=== PATIENT | female | born 1935 | race Caucasian/White ===

== ENCOUNTER 2017-03-28 10:50 | Emergency (ER) | payer MEDICARE, OTHER ==
[2017-03-28] MEDS ORDERED: ACETAMINOPHEN 325 MG TABLET PO STA (12:40)
[2017-03-28] MEDS ORDERED: NAPROXEN 250 MG TABLET PO STA (12:40)
[2017-03-28] MEDS ORDERED: ACETAMINOPHEN 325 MG TABLET PO ONE (12:45)
[2017-03-28] MEDS ORDERED: NAPROXEN 250 MG TABLET PO ONE (12:45)
--- NOTE | 2017-03-28 12:45 | ED Physician Documentation ---
PD HPI NECK PAIN - Stated complaint Stated Complaint: HEADACHE, BACK PX, LEG PX - Chief complaint Chief Complaint: General - History obtained from History obtained from: Patient, Family (brother) - History of Present Illness Timing - onset: How many days ago (few) Timing - duration: Days Timing - details: Gradual onset, Still present, Waxing and waning Location: Lower, Right, Left Quality: Pain, Aching Associated symptoms: No: Fever, Weakness, Numbness Worsened by: Movement Contributing factors: Out of meds Similar symptoms before: Diagnosis (arthritic changes in neck. Was getting PT for it.) Recently seen: Not recently seen Review of Systems Constitutional: denies: Fever, Chills Nose: denies: Rhinorrhea / runny nose, Congestion Throat: denies: Sore throat Cardiac: denies: Chest pain / pressure, Palpitations Respiratory: denies: Dyspnea, Cough, Wheezing Skin: reports: Laceration (s). denies: Lesions, Abrasion (s) Musculoskeletal: reports: Neck pain (chronic), Back pain (chronic) Neurologic: denies: Near syncope, Syncope, Altered mental status PD PAST MEDICAL HISTORY - Past Medical History Past Medical History: Yes Cardiovascular: Congestive heart failure, Valve disorder Respiratory: Asthma HEENT: Macular degeneration, Chronic hearing loss Musculoskeletal: Osteoarthritis Derm: Other Other Past Medical History: Skin cancer 2006. Cochlear implants. Myelodispastic syndrome. Shingles. Thrombocytopenia - Past Surgical History General: Cholecystectomy, Hiatal hernia repair, Colonoscopy /PLUMBING MECHANIC: Other - Present Medications Home Medications: Ambulatory Orders Medication Instructions Recorded Confirmed Aspirin 1 tab PO DAILY 03/28/17 03/28/17 Atorvastatin [Lipitor] 1 tab PO DAILY 03/28/17 03/28/17 Calcium Carbonate/Vitamin D3 1 tab PO DAILY 03/28/17 03/28/17 [Calcium 600-Vit D3 400 Tablet] Fluticasone/Salmeterol [Advair 1 applic INH BID 03/28/17 03/28/17 250-50 Diskus] Fluticasone/Salmeterol [Advair 1 each IH BID #1 blst.w.dev 03/28/17 250-50 Diskus] Ibuprofen 1 tab PO TID 03/28/17 03/28/17 Levothyroxine Sodium 150 mcg PO DAILY #10 tablet 03/28/17 Levothyroxine Sodium [Synthroid] 150 mcg PO DAILY 03/28/17 03/28/17 Lutein 10 mg PO DAILY 03/28/17 03/28/17 Metoprolol Tartrate 25 mg PO BID 03/28/17 03/28/17 Metoprolol Tartrate 25 mg PO BID #20 tablet 03/28/17 Naproxen 375 mg PO BID #20 tablet 03/28/17 Tramadol HCl 50 mg PO TID #15 tablet 03/28/17 Zolpidem Tartrate [Ambien] 1 tab PO DAILY PM 03/28/17 03/28/17 Zolpidem Tartrate [Ambien] 10 mg PO DAILY PRN #10 tablet 03/28/17 - Allergies Allergies/Adverse Reactions: Allergies Allergy/AdvReac Type Severity Reaction Status Date / Time amoxicillin trihydrate * Allergy Unknown Verified 03/28/17 11:10 [From Augmentin] codeine Allergy Unknown Verified 03/28/17 11:10 erythromycin base Allergy Unknown Verified 03/28/17 11:10 loratadine [From Claritin] Allergy Unknown Verified 03/28/17 11:10 potassium clavulanate * Allergy Unknown Verified 03/28/17 11:10 [From Augmentin] propoxyphene HCl * Allergy Unknown Verified 03/28/17 11:10 [From Darvon] Sulfa (Sulfonamide Allergy Unknown Verified 03/28/17 11:10 Antibiotics) tetracycline Allergy Unknown Verified 03/28/17 11:10 - Social History Does the pt smoke?: No Smoking Status: Never smoker Does the pt drink ETOH?: No Does the pt have substance abuse?: No - Immunizations Immunizations are current?: Yes - POLST Patient has POLST: No PD ED PE NORMAL - Vitals Vital signs reviewed: Yes - General General: Alert and oriented X 3, No acute distress, Well developed/nourished - HEENT HEENT: Pharynx benign - Neck Neck: Supple, no meningeal sign, No adenopathy - Cardiac Cardiac: RRR, No murmur - Respiratory Respiratory: Clear bilaterally - Abdomen Abdomen: Normal bowel sounds, Soft - Back Back: No CVA TTP - Derm Derm: Normal color, Warm and dry - Extremities Extremities: No tenderness to palpate, Normal ROM s pain, No edema, No calf tenderness / cord - Neuro Neuro: Alert and oriented X 3, No motor deficit, Normal speech Results - Vitals Vitals: Vital Signs - 24 hr 03/28/17 03/28/17 11:01 12:59 Temperature 36.7 C Heart Rate 61 80 Respiratory 20 20 Rate Blood Pressure 89/49 L 97/65 O2 Saturation 98 100 Oxygen O2 Source Room air PD MEDICAL DECISION MAKING - ED course Complexity details: considered differential (recently moved to area and getting new PMD, with appt this coming . Is out of meds. Feeling okay other than chronic back and neck pains. I did not see need for workup at this time, but would defer labs to new appt and can then get Wellness check labs at same time. ), d/w patient Departure - Departure Disposition: Home, Self Care Clinical Impression: Neck pain, Medication refill Condition: Stable Record reviewed to determine appropriate education?: Yes Instructions: ED Neck Pain No Trauma Follow-Up: Vijay Renteria MD [Provider Admit Priv/Credential] - Prescriptions: Fluticasone/Salmeterol [Advair 250-50 Diskus] 1 each IH BID #1 blst.w.dev Zolpidem Tartrate [Ambien] 10 mg PO DAILY PRN #10 tablet PRN Reason: Insomnia Levothyroxine Sodium 150 mcg PO DAILY #10 tablet Metoprolol Tartrate 25 mg PO BID #20 tablet Naproxen 375 mg PO BID #20 tablet Tramadol HCl 50 mg PO TID #15 tablet Comments: Continue usual medications except stop the Ibuprofen and change to Naproxen twice daily. Add Tylenol 500 mg 3 times daily for pain. Can add Tramadol if needed for worse pain periodically. Follow up with Dr. Renteria's office as planned. I will defer basic blood testing to him at that time. Discharge Date/Time: 03/28/17 13:08
[2017-03-28 13:00] VITALS: BP 97/65
[2017-04-06] MEDS ORDERED: SODIUM CHLORIDE FLUSH 0.9% 10 ML SYRINGE IVP PRN (21:06)
[2017-04-06] MEDS ORDERED: ONDANSETRON 4 MG/2 ML VIAL IVP PRN (21:06)
[2017-04-06] MEDS ORDERED: ACETAMINOPHEN 325 MG TABLET PO PRN (21:06)
[2017-04-06] MEDS ORDERED: ONDANSETRON ODT 4 MG TABLET TL PRN (21:06)
[2017-04-06] MEDS ORDERED: ZOLPIDEM TARTRATE PO SCH (21:15)
[2017-04-06] MEDS ORDERED: diphenhydrAMINE 25 MG CAPSULE PO ONE (21:17)
[2017-04-06] MEDS ORDERED: SODIUM CHLORIDE 0.9% 1,000 ML IV SCH (22:00)
[2017-04-06] MEDS ORDERED: SODIUM CHLORIDE FLUSH 0.9% 10 ML SYRINGE IVP SCH (22:00)
[2017-04-07] MEDS ORDERED: ZOLPIDEM 5 MG TABLET PO PRN (01:03)
[2017-04-07] MEDS ORDERED: LEVOTHYROXINE 75 MCG TABLET PO SCH ×2 (07:00)
[2017-04-07] MEDS ORDERED: POLYETHYLENE GLYCOL 3350 17 GM PACKET PO SCH (09:00)
[2017-04-07] MEDS ORDERED: LEVOTHYROXINE SODIUM 150 MCG PO SCH (09:00)
[2017-04-07] MEDS ORDERED: METOPROLOL TARTRATE 25 MG TABLET PO SCH (09:00)
[2017-04-08] MEDS ORDERED: KETOROLAC 30 MG/ML VIAL ONE (18:33)
== END 2017-03-28 13:08 | disposition home or self-care (01) ==
LOC: ED 10:50
DX: M54.2 Cervicalgia (principal); M54.9 Dorsalgia, unspecified; G89.29 Other chronic pain; Z76.0 Encounter for issue of repeat prescription; Z79.82 Long term (current) use of aspirin
CPT/HCPCS: 93005; 99283; A9270; 86850; 86900; 86901; 86920

== ENCOUNTER 2017-04-06 18:46 | Inpatient (IN) | payer MEDICARE ==
[2017-04-06] MEDS ORDERED: SODIUM CHLORIDE 0.9% 1,000 ML IV ONE (19:23)
--- NOTE | 2017-04-06 19:26 | ED Physician Documentation ---
History of Present Illness - Stated complaint Stated Complaint: RASH/BRUISING - Chief complaint Chief Complaint: General - History obtained from History obtained from: Patient, Family (brother) - Additonal information Additional information: This is a 81-year-old woman who presents accompanied by her brother by private vehicle for evaluation of a rash. She is somewhat confused so some of the history is from the chart, some from the brother, and some from the patient. For example she says she moved up from [place] 3 weeks ago, but the brother says she actually moved from [place]. She doesn't know the date. She doesn't know what medication she is on. She also doesn't recognize the term of myelodysplastic syndrome which is listed previous diagnosis of the chart. It sounds like this rash is mostly on her arms and has been progressive over several weeks. She is more confused. Brother says she has a mild cough and has been incontinent of loose stool. 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 HEENT: Cochlear implant - Present Medications Home Medications: Ambulatory Orders Medication Instructions Recorded Confirmed Aspirin 1 tab PO DAILY 03/28/17 03/28/17 Atorvastatin [Lipitor] 1 tab PO DAILY 03/28/17 03/28/17 Calcium Carbonate/Vitamin D3 1 tab PO DAILY 03/28/17 03/28/17 [Calcium 600-Vit D3 400 Tablet] Fluticasone/Salmeterol [Advair 1 applic INH BID 03/28/17 03/28/17 250-50 Diskus] Fluticasone/Salmeterol [Advair 1 each IH BID #1 blst.w.dev 03/28/17 250-50 Diskus] Ibuprofen 1 tab PO TID 03/28/17 03/28/17 Levothyroxine Sodium 150 mcg PO DAILY #10 tablet 03/28/17 Levothyroxine Sodium [Synthroid] 150 mcg PO DAILY 03/28/17 03/28/17 Lutein 10 mg PO DAILY 03/28/17 03/28/17 Metoprolol Tartrate 25 mg PO BID 03/28/17 03/28/17 Metoprolol Tartrate 25 mg PO BID #20 tablet 03/28/17 Naproxen 375 mg PO BID #20 tablet 03/28/17 Tramadol HCl 50 mg PO TID #15 tablet 03/28/17 Zolpidem Tartrate [Ambien] 1 tab PO DAILY PM 03/28/17 03/28/17 Zolpidem Tartrate [Ambien] 10 mg PO DAILY PRN #10 tablet 03/28/17 - Allergies Allergies/Adverse Reactions: Allergies Allergy/AdvReac Type Severity Reaction Status Date / Time amoxicillin trihydrate * Allergy Unknown Verified 04/06/17 19:15 [From Augmentin] codeine Allergy Unknown Verified 04/06/17 19:15 erythromycin base Allergy Unknown Verified 04/06/17 19:15 loratadine [From Claritin] Allergy Unknown Verified 04/06/17 19:15 potassium clavulanate * Allergy Unknown Verified 04/06/17 19:15 [From Augmentin] propoxyphene HCl * Allergy Unknown Verified 04/06/17 19:15 [From Darvon] Sulfa (Sulfonamide Allergy Unknown Verified 04/06/17 19:15 Antibiotics) tetracycline Allergy Unknown Verified 04/06/17 19:15 - Social History Does the pt smoke?: No Smoking Status: Never smoker Does the pt drink ETOH?: No Does the pt have substance abuse?: No - Family History Family history: reports: Non contributory - Immunizations Immunizations are current?: Yes - POLST Patient has POLST: No PD ED PE NORMAL - Vitals Vital signs reviewed: Yes (hypotensive) - General General: Other (oriented to person only) - HEENT HEENT: PERRL, EOMI - Neck Neck: Supple, no meningeal sign, No bony TTP - Cardiac Cardiac: RRR, No murmur - Respiratory Respiratory: No respiratory distress, Clear bilaterally - Abdomen Abdomen: Soft, Non tender - Female Female : Other (incontient of liquid but guaiac negative stool) - Back Back: No CVA TTP, No spinal TTP - Derm Derm: Other (She has bilateral pitting pedal edema with some weeping, there are petechiae on the top of the feet and excoriated rash with tissue loss on the tops of her arms, there is amado under her breasts.) - Neuro Neuro: No motor deficit, No sensory deficit - Psych Psych: Normal mood, Normal affect Results - Vitals Vitals: Vital Signs - 24 hr 04/06/17 04/06/17 04/06/17 18:55 19:57 20:50 Temperature 36.9 C Heart Rate 73 64 67 Respiratory 22 14 15 Rate Blood Pressure 79/32 L 97/44 L 117/42 L O2 Saturation 100 100 100 04/06/17 21:36 Temperature Heart Rate 66 Respiratory 14 Rate Blood Pressure 104/44 L O2 Saturation 100 Oxygen O2 Source Room air - EKG (time done) 1941 Rate: Rate (enter#) (69) Rhythm: NSR [place]: Normal Intervals: Normal OR QRS: LVH Ischemia: Normal ST segments Computer interpretation: Agree with computer - Labs Labs: Laboratory Tests 04/06/17 04/06/17 04/06/17 19:15 19:15 19:15 WBC 6.5 RBC 2.21 L Hgb 7.2 L Hct 21.5 L MCV 97.5 MCH 32.7 H MCHC 33.6 RDW 19.1 H Plt Count 297 MPV 8.7 Neut # 2.7 Lymph # 1.2 L [place] # 0.6 Eos # 1.9 H Baso # 0.1 Absolute Nucleated RBC 0.01 Nucleated RBCs 0.1 Manual Slide Review Indicated WBC Morphology 2+EO's Platelet Estimate NORMAL (130-450,000) Platelet Morphology NORMAL APPEARANCE RBC Morph Micro Appear 1+ R[place] PT 11.8 INR 1.0 Sodium 135 Potassium 4.7 Chloride 107 Carbon Dioxide 17 L Anion Gap 11.0 BUN 86 H* Creatinine 3.5 H Estimated GFR (MDRD) 13 L Glucose 116 H Lactic Acid Calcium 7.4 L Magnesium 2.5 Total Bilirubin 1.0 AST 52 H ALT 49 Alkaline Phosphatase 63 Total Creatine Kinase 179 CK-MB (CK-2) Troponin I B-Natriuretic Peptide Total Protein 7.0 Albumin 3.1 L Globulin 3.9 Albumin/Globulin Ratio 0.8 L Lipase 46 TSH Urine Color Urine Clarity Urine pH Ur Specific [place] Urine Protein Urine Glucose (UA) Urine Ketones Urine Occult Blood Urine Nitrite Urine Bilirubin Urine Urobilinogen Ur Leukocyte Esterase Urine RBC Urine WBC Ur Squamous Epith Cells Amorphous Sediment Urine Bacteria Urine Casts Ur Microscopic Review Urine Culture Comments 04/06/17 04/06/17 04/06/17 19:15 19:15 19:15 WBC RBC Hgb Hct MCV MCH MCHC RDW Plt Count MPV Neut # Lymph # [place] # Eos # Baso # Absolute Nucleated RBC Nucleated RBCs Manual Slide Review WBC Morphology Platelet Estimate Platelet Morphology RBC Morph Micro Appear PT INR Sodium Potassium Chloride Carbon Dioxide Anion Gap BUN Creatinine Estimated GFR (MDRD) Glucose Lactic Acid 1.8 Calcium Magnesium Total Bilirubin AST ALT Alkaline Phosphatase Total Creatine Kinase CK-MB (CK-2) 18.9 H Troponin I < 0.04 B-Natriuretic Peptide 1132 H Total Protein Albumin Globulin Albumin/Globulin Ratio Lipase TSH Urine Color Urine Clarity Urine pH Ur Specific [place] Urine Protein Urine Glucose (UA) Urine Ketones Urine Occult Blood Urine Nitrite Urine Bilirubin Urine Urobilinogen Ur Leukocyte Esterase Urine RBC Urine WBC Ur Squamous Epith Cells Amorphous Sediment Urine Bacteria Urine Casts Ur Microscopic Review Urine Culture Comments 04/06/17 04/06/17 19:15 19:30 WBC RBC Hgb Hct MCV MCH MCHC RDW Plt Count MPV Neut # Lymph # [place] # Eos # Baso # Absolute Nucleated RBC Nucleated RBCs Manual Slide Review WBC Morphology Platelet Estimate Platelet Morphology RBC Morph Micro Appear PT INR Sodium Potassium Chloride Carbon Dioxide Anion Gap BUN Creatinine Estimated GFR (MDRD) Glucose Lactic Acid Calcium Magnesium Total Bilirubin AST ALT Alkaline Phosphatase Total Creatine Kinase CK-MB (CK-2) Troponin I B-Natriuretic Peptide Total Protein Albumin Globulin Albumin/Globulin Ratio Lipase TSH 1.59 Urine Color YELLOW Urine Clarity CLEAR Urine pH 5.5 Ur Specific [place] 1.015 Urine Protein 30 H Urine Glucose (UA) NEGATIVE Urine Ketones NEGATIVE Urine Occult Blood NEGATIVE Urine Nitrite NEGATIVE Urine Bilirubin NEGATIVE Urine Urobilinogen 0.2 (NORMAL) Ur Leukocyte Esterase NEGATIVE Urine RBC 0-5 Urine WBC 0-3 Ur Squamous Epith Cells RARE Squamous Amorphous Sediment Rare Urine Bacteria None Seen Urine Casts 0-2 Cellular Casts Ur Microscopic Review INDICATED Urine Culture Comments NOT INDICATED - Rads (name of study) 1v chest Radiology: EMP read contemporaneously (mild pulmonary edema) PD MEDICAL DECISION MAKING - ED course ED course: She presents with worsening altered mental status and is found to be uremic with renal failure and anemia of unclear duration. Stool is liquid,. but not enough in ED to eval for c .diff. Spoke with Dr Hurt for admit at 1930. Prognosis is guarded given dehydration/renal failure yet evidence of CHF despite hypovolemia. Departure - Departure Disposition: 66 [facility] DC/Xfer Clinical Impression: Uremia, Dehydration, Renal failure Anemia Qualifiers: Anemia type: unspecified type Qualified Code(s): D64.9 - Anemia, unspecified Condition: Serious Discharge Date/Time: 04/06/17 22:37
[2017-04-06 19:30] LABS: BASOPHILS # (AUTO) 0.1 10^3/uL (0.0-0.1); EOSINOPHILS # (AUTO) 1.9 10^3/uL (0.0-0.7); EOSINOPHILS % (AUTO) 29.6 %; HCT - HEMATOCRIT 21.5 % (37.0-47.0); HGB - HEMOGLOBIN 7.2 g/dL (12.0-16.0); LYMPHOCYTES # (AUTO) 1.2 10^3/uL (1.5-3.5); LYMPHOCYTES % (AUTO) 18.4 %; MEAN CORPUSCULAR HEMOGLOBIN 32.7 pg (27.0-31.0); MEAN CORPUSCULAR HGB CONC 33.6 g/dL (32.0-36.0); MEAN CORPUSCULAR VOLUME 97.5 fL (81.0-99.0); MEAN PLATELET VOLUME 8.7 fL (7.9-10.8); MONOCYTES # (AUTO) 0.6 10^3/uL (0.0-1.0); NEUTROPHILS # (AUTO) 2.7 10^3/uL (1.5-6.6); NUCLEATED RED BLOOD CELLS AUTO 0.1 /100WBC; RED BLOOD COUNT 2.21 10^6/uL (4.20-5.40); RED CELL DISTRIBUTION WIDTH 19.1 % (12.0-15.0); UNCORRECTED WHITE BLOOD COUNT 6.5 x10^3/uL; WHITE BLOOD COUNT 6.5 x10^3/uL (4.8-10.8)
[2017-04-06 19:39] LABS: BILIRUBIN,URINE NEGATIVE (NEGATIVE); PH,URINE 5.5 PH (5.0-7.5)
[2017-04-06 19:42] LABS: UA w/ MICROSCOPIC CHARGE YES
[2017-04-06 19:50] LABS: UR CULTURE IF IND NOT INDICATED; WBC,URINE 0-3 /HPF (0-5)
[2017-04-06 19:51] LABS: CREATINE KINASE MB 18.9 ng/mL (0.6-6.3); TROPONIN I < 0.04 ng/mL (<0.49)
[2017-04-06 19:55] LABS: ALBUMIN/GLOBULIN RATIO 0.8 (1.0-2.2); CALCIUM 7.4 mg/dL (8.5-10.3); CREATININE 3.5 mg/dL (0.4-1.0); MAGNESIUM 2.5 mg/dL (1.7-2.8); POTASSIUM 4.7 mmol/L (3.5-5.0)
[2017-04-06 20:04] LABS: PLATELET ESTIMATE, MANUAL NORMAL (130-450,000) (NORMAL); PLATELET MORPHOLOGY NORMAL APPEARANCE (NORMAL)
[2017-04-06 20:06] LABS: WBC MORPHOLOGY (MULTIPLE) 2+EO's (NORMAL)
--- NOTE | 2017-04-06 20:14 | XRAY Preliminary Report ---
Exam: XR Chest 1 View IMPRESSION: Mild pulmonary fluid overload. [facility] SITE ID: [id number]
--- NOTE | 2017-04-06 20:16 | XRAY Report ---
EXAM: CHEST RADIOGRAPHY EXAM DATE: 04/06/2017 07:43 PM. CLINICAL HISTORY: Dyspnea. COMPARISON: None. TECHNIQUE: 1 view. FINDINGS: Lungs/Pleura: Normal lung volumes. Distended, ill-defined pulmonary vessels. No lobar consolidation. No pleural effusion or pneumothorax. Mediastinum: Prominent heart size. Aortic calcifications noted. Other: None. IMPRESSION: Mild pulmonary fluid overload. [facility] Referring Provider Line: [phone] SITE ID: [id number]
[2017-04-06 20:31] LABS: PT - PROTHROMBIN TIME 11.8 secs (9.9-12.6)
[2017-04-06] MEDS ORDERED: MORPHINE 2 MG/ML SYRINGE IVP STA (21:00)
[2017-04-06] MEDS ORDERED: MORPHINE 2 MG/ML SYRINGE ONE (21:09)
[2017-04-06] MEDS ORDERED: HALOPERIDOL 5 MG/ML VIAL IVP ONE (21:26)
[2017-04-06] MEDS ORDERED: HALOPERIDOL 5 MG/ML VIAL ONE (21:28)
[2017-04-06] MEDS ORDERED: SODIUM CHLORIDE FLUSH 0.9% 10 ML SYRINGE IVP SCH (22:00)
[2017-04-06] MEDS ORDERED: ONDANSETRON ODT 4 MG TABLET TL PRN ×2 (22:00→22:44)
[2017-04-06] MEDS ORDERED: ACETAMINOPHEN 325 MG TABLET PO PRN ×2 (22:00→22:44)
[2017-04-06] MEDS ORDERED: MORPHINE 2 MG/ML SYRINGE IVP PRN ×2 (22:00→22:44)
[2017-04-06] MEDS ORDERED: ONDANSETRON 4 MG/2 ML VIAL IVP PRN ×2 (22:00→22:44)
[2017-04-06] MEDS ORDERED: SODIUM CHLORIDE 0.9% 1,000 ML IV SCH (22:00)
[2017-04-06] MEDS ORDERED: SODIUM CHLORIDE FLUSH 0.9% 10 ML SYRINGE IVP PRN ×2 (22:00→22:44)
[2017-04-06] MEDS ORDERED: ZOLPIDEM TARTRATE 10 MG PO PRN ×2 (22:04→22:44)
[2017-04-06] MEDS: SODIUM CHLORIDE 0.9% 1,000 ML IV SCH (23:04)
[2017-04-06] MEDS ORDERED: ZOLPIDEM 5 MG TABLET PO PRN (23:06)
--- NOTE | 2017-04-07 01:59 | Ultrasound Preliminary Report ---
Exam: US Retroperitoneal IMPRESSION: 1. Bilateral echogenic renal cortex. Findings are nonspecific but are associated with chronic renal i nsufficiency. 2. Mild right pelviectasis. No hydronephrosis. No renal stones or mass. [facility] SITE ID: [id number]
[2017-04-07] MEDS ORDERED: FUROSEMIDE 20 MG/2 ML VIAL IVP SCH (03:00)
[2017-04-07] MEDS ORDERED: traMADol 50 MG TABLET PO SCH ×2 (06:00)
--- NOTE | 2017-04-07 06:37 | HISTORY & PHYSICAL EXAMINATION ---
DATE OF ADMISSION: 04/06/2017 PRIMARY CARE PROVIDER: Vijay Renteria MD. ADMITTING PROVIDER: Lilia King MD. CHIEF COMPLAINT: Itching so bad that she is scratching herself raw. HISTORY OF PRESENT ILLNESS: The patient is a limited history from a medical perspective. The history is obtained from the patient, her bvubsv-re-tle, and Dr. Denzel Cotter, who is her primary care provider in [place]. The only person who was able to provide me a relatively lucid history with some information that useful was the duytjg-yw-lsn. Dr. Cotter does not remember the patient at all. He said he would have to go back to his office tomorrow. The oeuhox-pz-fna is unable to remember previous history, and the patient, herself, is angry to be here and at times uncooperative. In January, she started falling. At one point in time she fell and she could not get up. In association with the falls was shortness of breath, poor appetite. EMS was called, and she was taken to a hospital for several days. Dr. Cotter says he does not know which hospital she was taken to, but he can bet it was either [facility] or [facility]. The narwec-px-rlm thinks that it was [facility] and [facility]. In any case, she was in the hospital for a few days, and then she was taken to a prison facility for rehabilitation for about 3 weeks. Her life has overall taken a down turn. Her health is poor, she does not have the support of her children, and her "grandchildren have robbed me blind." Her brother lives here on [facility], and, in concern and out of love for his sister, felt that he needed to go take care of her. So he picked her up from the prison facility and flew her here to [facility], and she landed 03/18/2017. Xsazqd-ua-pbi says that she knew it was a mistake within a few days. Although the patient is independent, in that she is able to get out of bed and walk to her bathroom, walk to the kitchen, take her own bath, she is having bouts diarrhea that are uncontrollable. This has resulted in multiple underwear changes and clothing changes, and multiple loads of laundry. The patient is always in constant pain, and the pain seems to be diffuse. Neck hurts. Shoulders hurt. Back hurts. Everything hurts. She will sometimes get up in the middle the night and goes youth minister the shower for 45 minutes under as hot of water as she can stand to help with the pain. Although she has tramadol for pain, she insists on taking ibuprofen, and her pgmiry-pm-tkk says that she takes ibuprofen like candy. She is not eating very well and has a poor appetite , but she likes her yogurt smoothies, oatmeal, eggs and toast. Her bottom teeth are gone, so she is not able to eat harder, or more solid food. Qygyml-od-caj describes her as mentally intact. She says, "You could hand her a column of numbers, and she can add them up in a few seconds." But she is just weak, stubborn, and angry to be here. A few days ago she started scratching her arms because they had a "rash." When the mvrisr-cq-ixe would look at the skin, she was not seeing a rash so much as dry skin. In any case, scratching ensued, and the patient is now scratching herself raw. She has not fallen, she has not had any antecedent fever or chills. No blood in the stool. No emesis. The zzvevl-tn-mqa denies that the patient is confused. The patient has been able to be established with Dr. Vijay Renteria and was examined by Dr. Renteria, and he told her that she cannot live by herself. They have investigated going to an assisted living facility, but it is $3500 a month, and all the [facility] housing apartments have up to a 3 to 5-year wait list. The sister finally could not take it anymore. The patient was scratching herself so badly that blood was oozing down her arms and on her clothes. The patient, herself, denies chest pain, palpitations, shortness of breath. She acknowledges edema of her legs. She is not happy to be here and demands to go home. She was evaluated by Dr. Combs. The patient is in renal failure with a creatinine of over 3. Her BNP is elevated. She is edematous, has amado underneath her breasts, and with hemoglobin of 7.2. As such, the patient is now admitted for inpatient status to have her medical problems taken care of, and for us to sort out all of these problems. PAST MEDICAL HISTORY 1. She denies heart disease, congestive heart failure, valvular heart disease. She denies kidney disease. 2. She is an ex-cigarette smoker and has COPD and takes an inhaler. She says the inhaler was prescribed recently. In looking at the EMR, she was seen by Dr. Lake Ortiz 03/28/2017 and that is when she got it. 3. Cholecystectomy in the past. 4. G2, P2. 5. Broken foot. She denies hypertension, diabetes, and does admit to having high cholesterol. ALLERGIES MULTIPLE, AND INCLUDE: 1. AMOXICILLIN. 2. CODEINE. 3. ERYTHROMYCIN. 4. LORATADINE. 5. POTASSIUM CLAVULANATE. 6. PROPOXYPHENE. 7. SULFA. 8. TETRACYCLINE. MEDICATIONS The bneirs-fs-wsn says that this is a current medication, but she will verify with Dr. Renteria in the morning. She is on: 1. Advair Diskus inhaler 1 puff b.i.d. 2. Ambien 10 mg at night p.r.n. 3. Aspirin 81 mg daily. 4. Calcium with vitamin D daily. 5. Ibuprofen 1 tablet 3 times a day. 6. Lipitor 10 mg tablet daily. 7. Lutein 10 mg tablet daily. 8. Metoprolol 25 mg p.o. b.i.d. 9. Synthroid 150 mcg daily. The ldbfxf-gu-nox says that she gives the patient her pills daily, so she knows she is compliant. SOCIAL HISTORY: She smoked. Stopped smoking about 25 years ago and smoked up to 2 packs per day. She denies alcohol abuse. She has been twice and twice, and both her ex-husbands are . 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 I asked her how much she got paid for that, and she laughed and said "nothing." She denies any history of recreational substance abuse in the form of cocaine, heroin, LSD, methamphetamines. One of her daughters accidentally overdosed on opiates and in her 40s. Her son was intermittently in contact. He lives in [place], and he did call the patient's dgavqg-eg-rdr today. It looks like he would want his mother flown back to [place], and he will take care of her in her apartment. FAMILY HISTORY: Both parents of old age. Of 3 brothers, one is . She does not know what he of. Her one brother who lives here is 81. Her 2 children, one is , were healthy with regard to heart, lung, kidney disease. REVIEW OF SYSTEMS: Very difficult to obtain in this stubborn, uncooperative elderly woman who is very unhappy to be here and is demanding to go home. PHYSICAL EXAMINATION HEENT: She tells me that she is a little deaf, but does not have any problem with her vision. She does endorse that her teeth are really bad, and it is easier for her to eat soft food. PULMONARY: She has a chronic daily cough with occasional phlegm production. No hemoptysis. No change in that status. CARDIAC: She firmly and adamantly denies heart problems. She says she has never had a heart attack, never had bypass surgery, and that her legs are "always swollen that way." GASTROINTESTINAL: Food just tastes bad. She does not have an appetite. She does not think she has lost any weight. She has had the diarrhea since she was in [place]. She denies blood in the stool, dark tarry stools. She denies abdominal pain but has a lot of belching and gas. GENITOURINARY: Urinary incontinence with urgency. She denies dysuria. No hematuria, no flank pain. JOINTS: "Everything hurts." Always has. She thinks it is from arthritis. She does not think her joints get hot or swollen. SKIN: No rashes, but she bruises easily, and her skin seems to tear easily. Her feet and legs are swollen again. She feels like she has a rash on her arms, and that is why she is scratching. CENTRAL NERVOUS SYSTEM: She appears to be forgetful, in that she will tell me that she is from [place], not [place]; but then her sister contradicts that and says that she is completely lucid and that she is just angry and does not want to talk to me. She was able to give me the name of Dr. Beckham, but she could not remember which hospital she was in. She was able to give me her address in [place]. She knows that she is on [facility], she does not know the name of this hospital or the date. She has occasionally slurred speech. She exhibits some deafness, but no facial asymmetry, and lips have dried, cracked brown matter, tongue is very dry and pale. NECK: Supple with no JVD. She does have bilateral carotid bruits or radiated carotid murmur. LUNGS: Lungs have diffuse upper airway tubular breath sounds, and a spine that is slightly kyphotic. No crackles, rhonchi, or wheezing, but she does have prolonged end-expiratory phase of respiration. CARDIOVASCULAR: PMI is normally placed with a systolic ejection murmur. Regular rate and rhythm. ABDOMEN: Soft, nontender, doughy abdominal wall, but no masses palpable. Normal bowel sounds and nontender. She has amado underneath her breasts and amado underneath her abdominal fold. The skin of perineum red and skin of coccyx and between fold of buttocks with rash. EXTREMITIES: Legs are swollen, pale, multiple petechiae that are red and nonblanching of the anterior jara tops of her feet. Blister that is 6 mm on the top of her right foot. Edema is pitting. No clubbing, no cyanosis. In examining the ankles, knees, wrists, elbows, and shoulders, there is no heat , no effusions. She has diminished range of motion of the shoulder joint and cannot seem to lift her arms above her head, not so much because of weakness but because of shoulder stiffness. There are no contractures. NEUROLOGIC: It is difficult to assess her orientation. In 1 minute she is cooperative and able to give me a sequential lucid history, and the next she is telling me she is in [place] and she wants me out of her room. She can follow 1- step commands. She has no focal deficits; has some diffuse generalized weakness and needs a standby and 1 minimum assist to sit up in bed. She is not dizzy or ataxic. STUDIES Sodium is 135, potassium 4.7, BUN 86, creatinine 3.5, GFR 13, glucose 116, calcium 7.4, AST 52, ALT 49, total bilirubin 1, troponin less than 0.04, BNP is 1132, TSH is 1.59, lactic acid 1.8. White cell count 6.5, hemoglobin 7.2, hematocrit 21.5, MCV 97, platelets 297. INR is 1. Urinalysis shows proteinuria, 0-5 red cells, 0-3 white cells, rare squamous epithelial cells, no bacteria seen, no culture will be done. Chest x-ray shows mild pulmonary fluid overload. EKG with sinus rhythm, PACs, and a short [place] interval. ASSESSMENT/PLAN 1. Severe pruritus. Most likely cause is the uremia. I explained to her that she does not have a rash, so much as she is scratching itchy skin, and that, in turn, is causing her to have excoriations and bleeding. Hopefully we can get rid of some of the urea, she will not itch as much. I am afraid to give her Benadryl or Atarax on a p.r.n. basis because of sedative qualities. 2. Acute renal failure. Unknown if this is acute on top of chronic, or acute in and of itself. I have no old labs for her. If she is dehydrated, I am presuming it is from diarrhea she describes on a daily basis. Start IV fluids in the form of 0.9 normal saline, check BMP daily. Check renal ultrasound. Get old records. 3. Leg edema. It is pitting. It appears to be associated with fluid retention; but lungs are relatively clear, she is not hypoxic, she has no JVD. However BNP is elevated. She denies history of heart disease. She denies being in congestive heart failure. Could she have pulmonary hypertension with right- sided heart failure because of COPD? I do not feel a right ventricular lift. Check echo. Hold off on Lasix tonight. I want to give her 0.9 normal saline and then blood as noted in problem #4. Then we will diurese her. We will also get [facility] I have asked our health utilization principal accounts clerk to get old records from those hospitals to shed some light. Dr. Cotter, unfortunately, was unable to help. TSH is normal. 4. Anemia. Normocytic. Unknown if acute or chronic. Check iron studies, B12 studies. Again compare to previous medical records. Because she is short of breath, transfuse 2 units. Stool is occult blood. 5. Diarrhea with rectal incontinence. Check C difficile. Add Questran powder to slow it down daily. 6. Possible cognitive deficit. Unclear if this is stubbornness, or if she is truly having memory loss. Again, we will get old records to see that will shed some light. B12 level already ordered. TSH is normal. Check RPR. 7. Amado intertrigo. Nystatin cream and powder. 8. DO NOT INTUBATE, DO NOT RESUSCITATE status per patient. In speaking to the jhwiqg-yb-dbm, she says that is what she has always wanted, and this is not a change, and jbvxri-pb-ftu says that we should honor those wishes. 9. Deep venous thrombosis prophylaxis with SCDs or YOUNG martines. JOB #: [id number] EXT JOB #:[id number] ADDENDUM: I was able to spent 30 minutes reviewing her chart from [facility] in [place]. The health community relations specialist also got records from [facility] as well as [facility] in [place]. They only had the emergency room labs but no admissions. She reportedly had a normal creatinine in April 2015 where her level was 0.[address] Cotter's office. She was then seen at [facility] emergency Department twice in November 2016. On December 11 of hemoglobin was 6.3 and creatinine 2.4. When she kneels down to pray at night before bedtime she is unable to get up off the floor. She declined admission. However she was transfused 2 units in the emergency room and left. She was again seen in the emergency room December 21 for weakness and shortness of breath. This entire time she has been weak, tired, short of breath. She was sent to the ER from her PCP office on the . Hemoglobin was 8 and she was not admitted. She was then seen in the ER 02/16/17 for shortness of breath Been unable to get off the floor from kneeling. She had been short of breath for a week and possibly 3 weeks. She was saturating 90% on room air. She was wheezing and had difficulty breathing. And she was treated as an acute COPD exacerbation. Her systolic blood pressure was in the 80s. Chest x-ray negative for pneumonia. Creatinine was 2.8 and hemoglobin was 6.6. Blood cultures were positive for staph in one out of four and MRSA in one out of four. Echocardiogram showed thickened mitral valve. Nodular calcifications and a fixed posterior leaflet. Sclerosis without stenosis. Minimal regurgitation all the valves. No evidence of vegetation. An ejection fraction of 55-60%. Infectious disease and cardiology and nephrology were consulted. Infectious disease opted to treat her with vancomycin and she was sent to a prison facility to receive 2 weeks of IV vancomycin for these positive blood cultures and equivocal echo. No transesophageal echo was done because cardiology felt that criteria were minimal for endocarditis. Nephrology felt that she had arteriosclerosis with chronic renal failure and that she had anemia of chronic disease. Urinalysis and renal ultrasound were done during that stay and she had a high postvoid residual but no renal disease was seen and no obstruction was seen. She was transfused 2 units of blood. She had a 9 beat run of V. tach as well as a 6 eat run of V. tach. Discharge was 02/19/17 and she went to a SNF. From the SNF she was picked up by her brother and flown here 03/18/17. TARIK
[2017-04-07] MEDS: SODIUM CHLORIDE FLUSH 0.9% 10 ML SYRINGE IVP SCH ×3 (06:47→21:54)
[2017-04-07] MEDS: PANTOPRAZOLE 40 MG TABLET PO SCH (06:48)
[2017-04-07] MEDS: LEVOTHYROXINE 75 MCG TABLET PO SCH (06:48)
[2017-04-07] MEDS ORDERED: PANTOPRAZOLE 40 MG TABLET PO SCH (07:00)
[2017-04-07] MEDS: SODIUM CHLORIDE 0.9% 1,000 ML IV SCH (07:33)
[2017-04-07] MEDS ORDERED: POLYETHYLENE GLYCOL 3350 17 GM PACKET PO SCH (09:00)
[2017-04-07] MEDS ORDERED: METOPROLOL TARTRATE 25 MG TABLET PO SCH ×3 (09:00→17:23)
[2017-04-07] MEDS ORDERED: LEVOTHYROXINE SODIUM 150 MCG PO SCH ×2 (09:00)
[2017-04-07 10:28] LABS: IMMATURE RETIC FRACTION 0.38; RED BLOOD COUNT 2.75 10^6/uL (4.20-5.40)
[2017-04-07 10:40] LABS: IRON 107 ug/dL (28-170); TOTAL IRON BINDING CAPACITY 197 ug/dL (250-450); TRANSFERRIN 141 mg/dL (192-382)
[2017-04-07] MEDS: POLYETHYLENE GLYCOL 3350 17 GM PACKET PO SCH (10:41)
--- NOTE | 2017-04-07 12:18 | Ultrasound Report ---
EXAM: RENAL ULTRASOUND EXAM DATE: 04/06/2017 11:39 PM. CLINICAL HISTORY: Acute renal failure. COMPARISON: None. TECHNIQUE: Real-time scanning was performed with static images obtained. FINDINGS: Right Kidney: 8.6 x 4 x 4.2 cm. Echogenic renal cortex. Mild pelviectasis. No stones or renal mass. Left Kidney: 10.2 x 4.1 x 5.2 cm. Echogenic renal cortex. 1.2 x 1.5 x 1.2 cm mid left renal hypoechoi c cystic structure, likely benign. No renal mass or stones or hydronephrosis noted. Bladder: Right ureteral jet not seen. Questionable left ureteral jet. The prevoid bladder volume was 128 cc. The postvoid bladder volume was not obtained. Comment: Study limited due to body habitus. IMPRESSION: 1. Bilateral echogenic renal cortex. Findings are nonspecific but are associated with chronic renal i nsufficiency. 2. Mild right pelviectasis. No hydronephrosis. No renal stones or mass. [facility] Referring Provider Line: [phone] SITE ID: [id number]
--- NOTE | 2017-04-07 12:33 | PROVIDER PROGRESS NOTE ---
Subjective - Prog Note Date Prog Note Date: 04/07/17 Prog Note Time: 12:30 (seen ~ 10am initially, several times late afternoon, early evening) - Subjective Subjective: I havent eaten since yesterday denies trouble chewing or swallowing, "I cant hear you" denies shortness of breath I hurt all over Its itchy RN reported later in afternoon, patient visitor felt patient confused While trying to arouse for exam she said "go away" family was in when I was in ED, tried to call brothers phone/ voicemail indicated mail box full, could not leave message Current Medications - Current Medications Current Medications: Active Medications Generic Name Dose Route Start Last Admin Trade Name Freq PRN Reason Stop Dose Admin Acetaminophen 650 mg 04/06/17 22:44 Tylenol PO Q4HR PRN Pain 1 to 4 Sodium Chloride 1,000 mls @ 100 mls/hr 04/06/17 23:00 04/07/17 07:33 Normal Saline 0.9% IV 100 mls/hr .Q10H YAKOV Administration Levothyroxine Sodium 150 mcg 04/07/17 07:00 04/07/17 06:48 Synthroid PO Not Given QDAC [facility] Metoprolol Tartrate 25 mg 04/07/17 09:00 04/07/17 11:39 Lopressor PO Not Given BID YAKOV Mineral Oil 1 applic 04/06/17 23:01 Cavilon TOP PRN PRN Skin Care Morphine Sulfate 2 mg 04/06/17 22:44 Morphine IVP Q2HR PRN Pain 8 to 10 Multi-Ingredient Ointment 1 applic 04/06/17 23:01 Zinc Oxide TOP PRN PRN Skin Care Ondansetron HCl 4 mg 04/06/17 22:44 Zofran Odt TL Q6HR PRN Nausea / Vomiting Ondansetron HCl 4 mg 04/06/17 22:44 Zofran Inj IVP Q6HR PRN Nausea / Vomiting Pantoprazole Sodium 40 mg 04/07/17 07:00 04/07/17 06:48 Protonix PO Not Given QDAC [facility] Polyethylene Glycol 17 gm 04/07/17 09:00 04/07/17 10:41 Miralax PO Not Given DAILY YAKOV Sodium Chloride 10 ml 04/06/17 23:00 04/07/17 06:47 Normal Saline Flush 0.9% IVP Not Given Q8HR YAKOV Sodium Chloride 10 ml 04/06/17 22:44 Normal Saline Flush 0.9% IVP PRN PRN NEEDED PER PROVIDER ORDERS Tramadol HCl 50 mg 04/07/17 06:00 Ultram PO TID YAKOV Zolpidem Tartrate 10 mg 04/06/17 23:06 Ambien PO QPM PRN Insomnia Fluticasone [Flonase] 1 spray LOTTIE BID 04/07/17 Ipratropium/Albuterol [Duoneb] 3 ml INH QID PRN 04/07/17 Levothyroxine [Synthroid] 150 mcg PO DAILY 04/07/17 Metoprolol Tartrate 25 mg PO BID 04/07/17 Omeprazole 20 mg PO DAILY 04/07/17 Zolpidem [Ambien] 10 mg PO QPM 04/07/17 traMADol [Ultram] 50 mg PO TID 04/07/17 Objective - Vital Signs/Intake & Output Reviewed Vital Signs: Yes Vital Signs: Vital Signs x48h Temp Pulse Resp BP Pulse Ox 04/07/17 09:15 36.3 C L 70 18 113/61 96 ~ 4pm afeb, 370 HR 125, 100 irregular 98% RA, SBP 115 Intake & Output: Intake & Output 04/04/17 04/05/17 04/06/17 04/07/17 23:59 23:59 23:59 23:59 Intake Total 1000 910 Output Total 201 Balance 1000 709 - Objective General Appearance: positive: Other (sitting up in bed this am, no acute distress, frustrated that hasnt eaten Late afternoon, difficult to arouse, but then would follow commands, no focal deficit, Read the written statement "are you tired" nodded yes Later in evening seen up in chair) ENT: positive: Other (tongue sl dry, lips dry, EOM intact, pupils =, ~ 2mm,) Respiratory: positive: No respiratory distress (unlabored respirations, with afib rate ~ 100-120 noted late in day Sa02 98%, minimal bibasilar crackles, distant breath sounds (but vesicular sounds ausculable), no cough) Cardiovascular: positive: No murmur, Irregularly irregular Abdomen: positive: Nml bowel sounds, No distention, Other. negative: Tenderness Skin: positive: Other (excoriations bilateral upper arms perineum noted very excoriated w/ shallow ulcerations. denuded, with intertrigio/vs yeast bilat groin folds. perineal excoriations extend to perianal area) Extremities: positive: Other (1+ pretibial edema. (not significant pitting)) Neurologic/Psychiatric: positive: Oriented x3 (this am, aware in hospital, March later seemed very fatigued, but arousable and followed commands, and finally seemed to be irritated with exam /cantankerous mimicking examiner), Disoriented to person, Weakness (was able to b e assisted up to chair for dinner ) - Lab Results Fish Bones: 04/06/17 19:15 04/06/17 19:15 Other Labs: Lab Results x24hrs 04/07/17 04/07/17 04/07/17 Range/Units 10:05 10:05 10:05 RBC (4.20-5.40) 10^6/uL Reticulocyte % (Auto) (0.5-2.3) % Absolute Retic (0.020-0.110) 10^6/uL Iron (28-170) ug/dL TIBC (250-450) ug/dL % Saturation (20-50) % Transferrin (192-382) mg/dL Ferritin 1086.2 H (11.0-306.8) ng/mL Lactate Dehydrogenase 325 H (91-225) IU/L B-Natriuretic Peptide 1796 H (5-100) pg/mL 04/07/17 04/07/17 Range/Units 10:05 10:05 RBC 2.75 L (4.20-5.40) 10^6/uL Reticulocyte % (Auto) 2.08 (0.5-2.3) % Absolute Retic 0.057 (0.020-0.110) 10^6/uL Iron 107 (28-170) ug/dL TIBC 197 L (250-450) ug/dL % Saturation 54 H (20-50) % Transferrin 141 L (192-382) mg/dL Ferritin (11.0-306.8) ng/mL Lactate Dehydrogenase (91-225) IU/L B-Natriuretic Peptide (5-100) pg/mL - Diagnostic Imaging Diagnostic Imaging Results: positive: Prelim report reviewed, Final report reviewed (Echocardiogram: (preliminary)Moderate concentric LVH, overall normal LVSysfxn w/ EF 65-70%. Indeterminate Diastolic function. No WMA mild aortic regurg, no mitral stenossis, mild to moderate mitral annular calcification, moderate cam regurgition, RVSP 52mg Ultrasound here: Bilateral echogenic renal cortex; nonspecific finding but assoc'd w/ chronic renal insufficiency 2 ) mild right pelvictasis, no hydronephosis) Assessment/Plan - Problem List (1) Acute on chronic renal failure Impression: Per Dr Soliman note/revieew of outside records ([facility]) (; Cr 0.7>>> mid 11/2016 Cr 2.4 late 11/2016 cr 2.8> evaluated by edging machine operator "atherosclerotic kidney disease", evaluated w/ U/A, urine electrolytesRenal U/S, normal (but noted PVR ~ 150cc). Reommended [id number] for metabolic acidosis Creatinine now 3.5 Repeat renal U/S as above no new findings/ findings c/w CKD Does take regular NSAID for chronic pain/ some impaired renal autoregulation, otherwise has not had new nephrotoxins , no contrast CT , (? possible AIN from [facility] ? (got 2 weeks IV late January_Mid February Urine spec grav argues agnst prerenal (or is she unable to concentrate urine?) Received 1LNS overnight and 2 units PRBC's (with lasix chaser); will recheck Cr in am; hopeful improvement avoid any nephrotixins (2) Anemia Impression: anemia: outside records call this "Anemia of Chronic dz", Iron studies: Ferritin 1086 TIBC 197 Transferrin 141 iron 107 not consistent w/ DOREEN B12 studies normal no occult blood did get Epo at outside hospital transufsed w/ 2 units due to symptomatic dyspnea, she is not offering much re: if she feels better post transfusion recheck in am Qualifiers: Anemia type: unspecified type Qualified Code(s): D64.9 - Anemia, unspecified (3) Cognitive change Impression: vs cantankerousness; B12 normal range TSH normal, RPR pending will do minimental, or minicog,clock drawing test when time permits, speak w/ family about how she has been w/ self care, exectutive fxn (4) Uremic pruritus Impression: will add eucerin creme (5) Weakness Impression: and deconditioning: due to anemia, prolonged SNF stay PT/ OT (was recently at SNF, but up and around at brothers house) (6) COPD (chronic obstructive pulmonary disease) Impression: emphysematous changes noted outside CXR no evident exacerbation at this time; continued duoneb noted on home meds brother brought rapid rate noted sometime after duoneb; will change to xopenex continue Advair on d/c (7) Atrial fibrillation Impression: not noted on outside records/no afib hx, BP stable did get duoneb ~ 2:45 pm Re: possible causesTSH already checked, normal 1.59 , normal troponin on admit, (will recheck) has known copd, afib not noted in medical history, outside echo w / nl EF, valves notable for MR (similar finding on todays echo) has not gotten today's metoprolol; will give now (reduced to 12.5 mg given systolic ~ 1teens, (but may improved w/ better rate contorl satting 98% on RA w/ HOB up, slight crackles bilat bases, (in and out cath/ prefer not to add indwelling catheter given the radvanced CKD / infection risk BNP elevated 1132 on admit>>1796 (also due to elevated Cr) after volume repleation and PRBC's (followed by lasix ) Normal EF on recent echo, since does have mitral regurg will give additional lasix 20 mg Will d/w family/patient anticoagulation [id number] score 3 4.6 % risk stroke/TIA will montior on tele,adjust beta artemio as warranted ; (8) Hypothyroidism Impression: continue home LT4 150 mcg daily (TSH here 1.59 (9) Diarrhea Impression: reported as chronic problem since last admit in [place], but has not had BM here since admit only senait per RN, if pateitn will allow will do rectal to eval for impaction (? if loose stool leaking around obstruction?) Disposition Per brother, was discharged 02/19 form hospital to a SNF, Brother picked her up from SNF and flew her to [facility], where she has been staying with him and his since they were unable to find senior housing Today Dr. Renteria indicates she was out of SNF days on her medicare Son evidently planning on bringing her back to [place], but per Dr. Renteria , she has no finances; CM/SW aware, ? Medicaid needed? (10) Confusion Impression: More somnulent this pm, (did stick her tongue out at me when I asked if she had pain which may or may not be deliberate), no fever , no hypoxia, ua normal this am, no culprit meds, afib RVR as above, no further diarrhea since admit no focal findings on exam (does eventually follow bilat commands to squeeze, and holds legs open for stewart placement I suspect her tremulousness is more due to the duoneb, (changing to xopenex), but given her advance CKD will check blood cultures (intertrigio/ does have skin compromise Will stop ambien (hasnt gotten here, to avoid confusion tonight May just be tired (11) NSVT (nonsustained ventricular tachycardia) Impression: 7 beat run today, also noted 9bt, 6 bt on outside record was seen by cardiolgy there, echo w/ normal EF K, Mag in normal range. continue metoprolol, continue tele (12) Denuded skin Impression: of perineum; likely has had chronic dribbling (PvR noted on [place] renal/bladder u/s will place stewart for now (only planned in and out cath, but placed indwelling given excoriation start barrier creme, continue nystatin for amado/groin folds may need out patient urodynamic evaluation as above, ordered blood cultures w/ altered mentation earlier in event any skin alla>> infecton in pt w/ advanced CKD
[2017-04-07] MEDS: EMOLLIENT CREAM 57 GM TUBE TOP SCH ×2 (13:51→21:57)
[2017-04-07] MEDS ORDERED: IPRATROPIUM/ALBUTEROL 3 ML NEB INH ONE (14:45)
[2017-04-07] MEDS: NYSTATIN POWDER 15 GM TOP SCH ×2 (18:05→21:56)
[2017-04-07] MEDS: FUROSEMIDE 100 MG/10 ML VIAL IVP SCH ×2 (18:12→18:18)
[2017-04-07] MEDS: LEVALBUTEROL 1.25 MG INH SCH (18:55)
[2017-04-07] MEDS: SODIUM CHLORIDE INHALATION 3 ML NEB INH PRN (18:55)
[2017-04-07] MEDS ORDERED: IPRATROPIUM/ALBUTEROL 3 ML NEB INH SCH (19:00)
[2017-04-07] MEDS: MIN OIL/DIMETHICON/COCONUT OIL 92 GM TUBE TOP PRN (21:58)
[2017-04-07] MEDS: ZINC OXIDE 20% OINT 28.35 GM TUBE TOP PRN (21:59)
[2017-04-07] MEDS ORDERED: HALOPERIDOL 5 MG/ML VIAL IM SCH (23:18)
[2017-04-08 02:13] LABS: BASOPHILS # (AUTO) 0.1 10^3/uL (0.0-0.1); BASOPHILS % (AUTO) 1.8 %; EOSINOPHILS # (AUTO) 0.8 10^3/uL (0.0-0.7); EOSINOPHILS % (AUTO) 18.5 %; HCT - HEMATOCRIT 23.4 % (37.0-47.0); LYMPHOCYTES # (AUTO) 0.8 10^3/uL (1.5-3.5); LYMPHOCYTES % (AUTO) 19.2 %; MEAN CORPUSCULAR HEMOGLOBIN 31.3 pg (27.0-31.0); MEAN CORPUSCULAR HGB CONC 34.1 g/dL (32.0-36.0); MEAN CORPUSCULAR VOLUME 91.6 fL (81.0-99.0); MEAN PLATELET VOLUME 6.8 fL (7.9-10.8); MONOCYTES # (AUTO) 0.4 10^3/uL (0.0-1.0); MONOCYTES % (AUTO) 10.3 %; NEUTROPHILS # (AUTO) 2.1 10^3/uL (1.5-6.6); NEUTROPHILS % (AUTO) 50.2 %; NUCLEATED RED BLOOD CELLS AUTO 0.1 /100WBC; RED BLOOD COUNT 2.55 10^6/uL (4.20-5.40); RED CELL DISTRIBUTION WIDTH 18.2 % (12.0-15.0); UNCORRECTED WHITE BLOOD COUNT 4.1 x10^3/uL; WHITE BLOOD COUNT 4.1 x10^3/uL (4.8-10.8)
[2017-04-08 02:26] LABS: CALCIUM 7.2 mg/dL (8.5-10.3); CREATININE 3.1 mg/dL (0.4-1.0); POTASSIUM 3.9 mmol/L (3.5-5.0)
[2017-04-08] MEDS: LEVOTHYROXINE 75 MCG TABLET PO SCH (06:13)
[2017-04-08] MEDS: PANTOPRAZOLE 40 MG TABLET PO SCH (06:13)
[2017-04-08] MEDS: SODIUM CHLORIDE FLUSH 0.9% 10 ML SYRINGE IVP SCH ×2 (07:03→21:51)
[2017-04-08] MEDS: SODIUM CHLORIDE INHALATION 3 ML NEB INH PRN ×2 (07:25→19:20)
[2017-04-08] MEDS: LEVALBUTEROL 1.25 MG INH SCH ×2 (07:25→19:20)
[2017-04-08] MEDS ORDERED: FUROSEMIDE 20 MG/2 ML VIAL IVP SCH (09:00)
[2017-04-08] MEDS ORDERED: DIMETHICONE CREAM 118 ML TUBE TOP SCH (09:00)
--- NOTE | 2017-04-08 09:59 | PROVIDER PROGRESS NOTE ---
Subjective - Prog Note Date Prog Note Date: 04/08/17 Prog Note Time: 09:50 - Subjective Subjective: per RN, Dr. King, patient got Haldol 2.5 last night as combative, pulling off tele, stewart, and IV did not arouse for me or RT Later RN indicated she did eat her breakfast, demanded "salt" as her one request then pushed the tray away when done Refusing po meds per RN Patient nonverbal when I have seen today.sleeping, difficult to arouse Brother in, patient held his hand but did not open her eyes or speak to him Brother says siblings want to fly her back to [place] Current Medications - Current Medications Current Medications: Active Medications Generic Name Dose Route Start Last Admin Trade Name Freq PRN Reason Stop Dose Admin Acetaminophen 650 mg 04/06/17 22:44 Tylenol PO Q4HR PRN Pain 1 to 4 Levalbuterol HCl 1.25 mg 04/07/17 19:00 04/08/17 07:25 Xopenex INH 1.25 mg RTBID YAKOV Administration Levothyroxine Sodium 150 mcg 04/07/17 07:00 04/08/17 06:13 Synthroid PO 150 mcg QDAC YAKOV Administration Metoprolol Tartrate 12.5 mg 04/07/17 17:23 04/07/17 18:04 Lopressor PO 12.5 mg BID YAKOV Administration Mineral Oil 1 applic 04/06/17 23:01 04/07/17 21:58 Cavilon TOP 1 applic PRN PRN Administration Skin Care Mineral Oil 1 applic 04/08/17 09:00 Cavilon TOP BID YAKOV Morphine Sulfate 2 mg 04/06/17 22:44 Morphine IVP Q2HR PRN Pain 8 to 10 Multi-Ingredient Ointment 1 applic 04/06/17 23:01 04/07/17 21:59 Zinc Oxide TOP 1 applic PRN PRN Administration Skin Care Multi-Ingredient Ointment 1 applic 04/07/17 13:00 04/07/17 21:57 Eucerin TOP 1 applic BID YAKOV Administration Nystatin 1 applic 04/07/17 18:00 04/07/17 21:56 Nystop TOP 1 applic BID YAKOV Administration Ondansetron HCl 4 mg 04/06/17 22:44 Zofran Odt TL Q6HR PRN Nausea / Vomiting Ondansetron HCl 4 mg 04/06/17 22:44 Zofran Inj IVP Q6HR PRN Nausea / Vomiting Pantoprazole Sodium 40 mg 04/07/17 07:00 04/08/17 06:13 Protonix PO 40 mg QDAC YAKOV Administration Polyethylene Glycol 17 gm 04/07/17 09:00 04/07/17 10:41 Miralax PO Not Given DAILY YAKOV Sodium Chloride 10 ml 04/06/17 23:00 04/08/17 07:03 Normal Saline Flush 0.9% IVP 10 ml Q8HR YAKOV Administration Sodium Chloride 10 ml 04/06/17 22:44 Normal Saline Flush 0.9% IVP PRN PRN NEEDED PER PROVIDER ORDERS Sodium Chloride 3 ml 04/07/17 17:28 04/08/17 07:25 Normal Saline INH 3 ml PRN PRN Administration Levalbuterol treatment Fluticasone [Flonase] 1 spray LOTTIE BID 04/07/17 Ipratropium/Albuterol [Duoneb] 3 ml INH QID PRN 04/07/17 Levothyroxine [Synthroid] 150 mcg PO DAILY 04/07/17 Metoprolol Tartrate 25 mg PO BID 04/07/17 Omeprazole 20 mg PO DAILY 04/07/17 Zolpidem [Ambien] 10 mg PO QPM 04/07/17 traMADol [Ultram] 50 mg PO TID 04/07/17 Objective - Vital Signs/Intake & Output Reviewed Vital Signs: Yes Vital Signs: Vital Signs x48h Temp Pulse Pulse Resp BP Pulse Ox 04/08/17 08:24 36.8 C 88 22 111/51 L 98 04/08/17 07:25 78 18 04/08/17 03:43 36.9 C 110 H 20 120/52 L 97 Intake & Output: Intake & Output 04/05/17 04/06/17 04/07/17 04/08/17 23:59 23:59 23:59 23:59 Intake Total 1000 1479 400 Output Total 1166 Balance 1000 313 400 - Objective General Appearance: positive: Other (sleeping when I went in room, did not arouse for me w/ firm palpation, auscultation) Eyes Bilateral: positive: Other (dry crusting around eyes,) Respiratory: positive: No respiratory distress (lying flat breathing comfortably ), Breath sounds nml (auscultated early in day when RN had patient sitting at bedside no wheezing, no rhonchi, no crackles, Sa02 on RA 97-98%) Cardiovascular: positive: Irregularly irregular, Other (rate ~ 100 faint 1/6 systolic murmur) Abdomen: positive: Nml bowel sounds, No distention, Other (stewart out this am). negative: Tenderness Skin: positive: Warm, Dry, Other (excoriated lesions w/ scabbing bilateral forearms, no bleeding perineum not visualized today, but I examined yesterday, excoriated vulva, perineum w/ shallow ulcerations,) Extremities: positive: Pedal edema (1+) Neurologic/Psychiatric: positive: Other (as above , nonverbal with me today. Sat up for breakfast w/ RN assist) - Lab Results Fish Bones: 04/08/17 02:07 04/08/17 02:07 Other Labs: Lab Results x24hrs 04/08/17 04/08/17 04/08/17 Range/Units 02:07 02:07 02:07 WBC 4.1 L (4.8-10.8) x10^3/uL RBC 2.55 L (4.20-5.40) 10^6/uL Hgb 8.0 L (12.0-16.0) g/dL Hct 23.4 L (37.0-47.0) % MCV 91.6 (81.0-99.0) fL MCH 31.3 H (27.0-31.0) pg MCHC 34.1 (32.0-36.0) g/dL RDW 18.2 H (12.0-15.0) % Plt Count 181 (130-450) 10^3/uL MPV 6.8 L (7.9-10.8) fL Reticulocyte % (Auto) (0.5-2.3) % Neut # 2.1 (1.5-6.6) 10^3/uL Lymph # 0.8 L (1.5-3.5) 10^3/uL Yell # 0.4 (0.0-1.0) 10^3/uL Eos # 0.8 H (0.0-0.7) 10^3/uL Baso # 0.1 (0.0-0.1) 10^3/uL Absolute Nucleated RBC 0.00 x10^3/uL Nucleated RBCs 0.1 /100WBC Absolute Retic (0.020-0.110) 10^6/uL Sodium 142 (135-145) mmol/L Potassium 3.9 (3.5-5.0) mmol/L Chloride 115 H (101-111) mmol/L Carbon Dioxide 17 L (21-32) mmol/L Anion Gap 10.0 (6-13) BUN 77 H (6-20) mg/dL Creatinine 3.1 H (0.4-1.0) mg/dL Estimated GFR (MDRD) 14 L (>89) Glucose 88 (70-100) mg/dL Calcium 7.2 L (8.5-10.3) mg/dL Phosphorus 5.0 H (2.5-4.6) mg/dL Iron (28-170) ug/dL TIBC (250-450) ug/dL % Saturation (20-50) % Transferrin (192-382) mg/dL Ferritin (11.0-306.8) ng/mL Lactate Dehydrogenase (91-225) IU/L Troponin I 0.08 (<0.49) ng/mL B-Natriuretic Peptide (5-100) pg/mL Vitamin B12 (180-914) pg/mL 04/08/17 04/07/17 04/07/17 Range/Units 02:07 18:20 10:05 WBC (4.8-10.8) x10^3/uL RBC (4.20-5.40) 10^6/uL Hgb (12.0-16.0) g/dL Hct (37.0-47.0) % MCV (81.0-99.0) fL MCH (27.0-31.0) pg MCHC (32.0-36.0) g/dL RDW (12.0-15.0) % Plt Count (130-450) 10^3/uL MPV (7.9-10.8) fL Reticulocyte % (Auto) (0.5-2.3) % Neut # (1.5-6.6) 10^3/uL Lymph # (1.5-3.5) 10^3/uL Yell # (0.0-1.0) 10^3/uL Eos # (0.0-0.7) 10^3/uL Baso # (0.0-0.1) 10^3/uL Absolute Nucleated RBC x10^3/uL Nucleated RBCs /100WBC Absolute Retic (0.020-0.110) 10^6/uL Sodium (135-145) mmol/L Potassium (3.5-5.0) mmol/L Chloride (101-111) mmol/L Carbon Dioxide (21-32) mmol/L Anion Gap (6-13) BUN (6-20) mg/dL Creatinine (0.4-1.0) mg/dL Estimated GFR (MDRD) (>89) Glucose (70-100) mg/dL Calcium (8.5-10.3) mg/dL Phosphorus (2.5-4.6) mg/dL Iron (28-170) ug/dL TIBC (250-450) ug/dL % Saturation (20-50) % Transferrin (192-382) mg/dL Ferritin (11.0-306.8) ng/mL Lactate Dehydrogenase (91-225) IU/L Troponin I 0.06 (<0.49) ng/mL B-Natriuretic Peptide 1796 H (5-100) pg/mL Vitamin B12 676 (180-914) pg/mL 04/07/17 04/07/17 04/07/17 Range/Units 10:05 10:05 10:05 WBC (4.8-10.8) x10^3/uL RBC (4.20-5.40) 10^6/uL Hgb (12.0-16.0) g/dL Hct (37.0-47.0) % MCV (81.0-99.0) fL MCH (27.0-31.0) pg MCHC (32.0-36.0) g/dL RDW (12.0-15.0) % Plt Count (130-450) 10^3/uL MPV (7.9-10.8) fL Reticulocyte % (Auto) (0.5-2.3) % Neut # (1.5-6.6) 10^3/uL Lymph # (1.5-3.5) 10^3/uL Yell # (0.0-1.0) 10^3/uL Eos # (0.0-0.7) 10^3/uL Baso # (0.0-0.1) 10^3/uL Absolute Nucleated RBC x10^3/uL Nucleated RBCs /100WBC Absolute Retic (0.020-0.110) 10^6/uL Sodium (135-145) mmol/L Potassium (3.5-5.0) mmol/L Chloride (101-111) mmol/L Carbon Dioxide (21-32) mmol/L Anion Gap (6-13) BUN (6-20) mg/dL Creatinine (0.4-1.0) mg/dL Estimated GFR (MDRD) (>89) Glucose (70-100) mg/dL Calcium (8.5-10.3) mg/dL Phosphorus (2.5-4.6) mg/dL Iron 107 (28-170) ug/dL TIBC 197 L (250-450) ug/dL % Saturation 54 H (20-50) % Transferrin 141 L (192-382) mg/dL Ferritin 1086.2 H (11.0-306.8) ng/mL Lactate Dehydrogenase 325 H (91-225) IU/L Troponin I (<0.49) ng/mL B-Natriuretic Peptide (5-100) pg/mL Vitamin B12 (180-914) pg/mL 04/07/17 Range/Units 10:05 WBC (4.8-10.8) x10^3/uL RBC 2.75 L (4.20-5.40) 10^6/uL Hgb (12.0-16.0) g/dL Hct (37.0-47.0) % MCV (81.0-99.0) fL MCH (27.0-31.0) pg MCHC (32.0-36.0) g/dL RDW (12.0-15.0) % Plt Count (130-450) 10^3/uL MPV (7.9-10.8) fL Reticulocyte % (Auto) 2.08 (0.5-2.3) % Neut # (1.5-6.6) 10^3/uL Lymph # (1.5-3.5) 10^3/uL Yell # (0.0-1.0) 10^3/uL Eos # (0.0-0.7) 10^3/uL Baso # (0.0-0.1) 10^3/uL Absolute Nucleated RBC x10^3/uL Nucleated RBCs /100WBC Absolute Retic 0.057 (0.020-0.110) 10^6/uL Sodium (135-145) mmol/L Potassium (3.5-5.0) mmol/L Chloride (101-111) mmol/L Carbon Dioxide (21-32) mmol/L Anion Gap (6-13) BUN (6-20) mg/dL Creatinine (0.4-1.0) mg/dL Estimated GFR (MDRD) (>89) Glucose (70-100) mg/dL Calcium (8.5-10.3) mg/dL Phosphorus (2.5-4.6) mg/dL Iron (28-170) ug/dL TIBC (250-450) ug/dL % Saturation (20-50) % Transferrin (192-382) mg/dL Ferritin (11.0-306.8) ng/mL Lactate Dehydrogenase (91-225) IU/L Troponin I (<0.49) ng/mL B-Natriuretic Peptide (5-100) pg/mL Vitamin B12 (180-914) pg/mL Assessment/Plan - Problem List (1) Acute on chronic renal failure Impression: (1) Acute on chronic renal failure Impression: 04/08 Cr improved to 3.1, after blood volume, and IVF no evident volume overload Patient self d/c'd IV last night, closer to 11/2016 Cr of 2.8. Phos slightly elevated will check CKD guidelines for starting Phos lo, may contact Dr. Lewis in am for other recs added water based immolient for uremic pruruitis 04/[address] Soliman note/revieew of outside records ([facility] ) (; Cr 0.7>>> mid 11/2016 Cr 2.4 late 11/2016 cr 2.8> evaluated by cinder block mason "atherosclerotic kidney disease", evaluated w/ U/A, urine electrolytesRenal U/S, normal (but noted PVR ~ 150cc). Reommended [id number] for metabolic acidosis Creatinine now 3.5 Repeat renal U/S as above no new findings/ findings c/w CKD Does take regular NSAID for chronic pain/ some impaired renal autoregulation, otherwise has not had new nephrotoxins , no contrast CT , (? possible AIN from [facility] ? (got 2 weeks IV late January_Mid February Urine spec grav argues agnst prerenal (or is she unable to concentrate urine?) Received 1LNS overnight and 2 units PRBC's (with lasix chaser); will recheck Cr in am; hopeful improvement avoid any nephrotixins (2) Anemia Impression: 04/08 Hgb 8 anemia: outside records call this "Anemia of Chronic dz", Iron studies: Ferritin 1086 TIBC 197 Transferrin 141 iron 107 not consistent w/ DOREEN B12 studies normal no occult blood did get Epo at outside hospital transufsed w/ 2 units due to symptomatic dyspnea, she is not offering much re: if she feels better post transfusion recheck in am 3) Post void residual' ureteral reflux could conceivabley be contributing to the recent cKD 900 cc today ISC q 8 hrs (5) Weakness and deconditioning Impression: Multifactorial due to anemia, CKD continue oob to chair tid PT eval; families goal is to fly her back to [place] was at SNF in [place] til moved to brothers on 03/18 (6) Cognitive change Impression: vs cantankerousness; B12 normal range TSH normal, not alert today to do minimental, Brother notes although her 2am showers at home were oddly timed, rather than this sounds like was purposeful to address pruritis (6) COPD (chronic obstructive pulmonary disease) Impression: stable, no wheezing, no 02 need on duonebs and advair at home prn xopenex here (rapid afib after duoneb 04/07 (7) Atrial fibrillation Impression: 04/08; rate reasonably controlled ~ 100 self d/c'd tele , continue metoprolol, will defer discussion re:anticoagulant 04/07not noted on outside records/no afib hx, BP stable did get duoneb ~ 2:45 pm Re: possible causesTSH already checked, normal 1.59 , normal troponin on admit, (will recheck) has known copd, afib not noted in medical history, outside echo w / nl EF, valves notable for MR (similar finding on todays echo) has not gotten today's metoprolol; will give now (reduced to 12.5 mg given systolic ~ 1teens, (but may improved w/ better rate contorl satting 98% on RA w/ HOB up, slight crackles bilat bases, (in and out cath/ prefer not to add indwelling catheter given the radvanced CKD / infection risk BNP elevated 1132 on admit>>1796 (also due to elevated Cr) after volume repleation and PRBC's (followed by lasix ) Normal EF on recent echo, since does have mitral regurg will give additional lasix 20 mg Will d/w family/patient anticoagulation [id number] score 3 4.6 % risk stroke/TIA will montior on tele,adjust beta artemio as warranted (8) Hypothyroidism Impression: continue home LT4 150 mcg daily (TSH here 1.59 (9) Denuded skin of perineum Impression: Patient d/c'd stewart. With PVR of 900 will do ISC q 8 hr likely has had chronic dribbling (PvR noted on [place] renal/bladder u/s will place stewart for now (only planned in and out cath, but placed indwelling given excoriation start barrier creme, continue nystatin for amado/groin folds may need out patient urodynamic evaluation as above, ordered blood cultures w/ altered mentation earlier Disposition Per brother, and recordswas discharged 02/19 from hospital to a SNF, Brother picked her up from SNF and flew her to [facility], where she has been staying with him and his since they were unable to find senior housing Dr. Renteria indicated she was out of SNF days on her medicare CM has explored and there are still SNF days available Still need PT assessment, will d/w brother if will consider SNF here (if qualifies) to be stronger for flying back to [place] Will need to address safety for flying first (11) NSVT (nonsustained ventricular tachycardia) Impression: 04/08; patient self d/c'd tele, no further NSVT noted last night 04/07 7 beat run today, also noted 9bt, 6 bt on outside record was seen by cardiolgy there, echo w/ normal EF K, Mag in normal range. continue metoprolol, continue tele (12) Diarrhea Impression: 04/08; none 04/07reported as chronic problem since last admit in [place], but has not had BM here since admit (2) Cognitive change Impression: today sedation more c/w last nights haldol When awake, she continues irritable, cantankerous have not been able to have meaningful conversation w/ her re goals of care (3) Uremic pruritus Impression: added water based emollient (4) Weakness Impression: Multifactorial due to anemia, CKD continue oob to chair tid PT eval; families goal is to fly her back to [place] (5) COPD (chronic obstructive pulmonary disease) Impression: stable, no wheezing, no 02 need on duonebs and advair at home prn xopenex here (rapid afib after duoneb 04/07
[2017-04-08] MEDS: METOPROLOL TARTRATE 25 MG TABLET PO SCH ×2 (12:01→22:03)
[2017-04-08] MEDS: POLYETHYLENE GLYCOL 3350 17 GM PACKET PO SCH (12:02)
[2017-04-08] MEDS: EMOLLIENT CREAM 57 GM TUBE TOP SCH ×2 (12:02→22:22)
[2017-04-08] MEDS: NYSTATIN POWDER 15 GM TOP SCH ×2 (12:02→22:22)
[2017-04-08] MEDS: MIN OIL/DIMETHICON/COCONUT OIL 92 GM TUBE TOP SCH ×2 (12:02→22:21)
[2017-04-08] MEDS ORDERED: CARBOXYMETHYLCELLULOSE OPHTH DROPS EACHEYE PRN (17:00)
[2017-04-09] MEDS: SODIUM CHLORIDE FLUSH 0.9% 10 ML SYRINGE IVP SCH ×3 (01:46→14:16)
[2017-04-09] MEDS: LEVOTHYROXINE 75 MCG TABLET PO SCH (06:18)
[2017-04-09] MEDS: PANTOPRAZOLE 40 MG TABLET PO SCH (06:19)
[2017-04-09 08:05] VITALS: BP 117/64
[2017-04-09] MEDS: METOPROLOL TARTRATE 25 MG TABLET PO SCH (08:48)
[2017-04-09] MEDS: POLYETHYLENE GLYCOL 3350 17 GM PACKET PO SCH (08:48)
[2017-04-09] MEDS: EMOLLIENT CREAM 57 GM TUBE TOP SCH (08:51)
[2017-04-09] MEDS: ZINC OXIDE 20% OINT 28.35 GM TUBE TOP PRN (08:52)
[2017-04-09] MEDS: MIN OIL/DIMETHICON/COCONUT OIL 92 GM TUBE TOP PRN (08:52)
[2017-04-09] MEDS: NYSTATIN POWDER 15 GM TOP SCH (08:53)
[2017-04-09] MEDS: MIN OIL/DIMETHICON/COCONUT OIL 92 GM TUBE TOP SCH (08:54)
--- NOTE | 2017-04-09 11:29 | Discharge Plan ---
Discharge Plan Disposition: Home, Self Care Condition: Stable Prescriptions: Metoprolol Tartrate 37.5 mg PO BID #60 tablet Nystatin [Nystop] 1 applic TOP BID #1 bottle Calcium Acetate [Phoslo] 667 mg PO TIDWM #90 capsule Diet: Low Sodium Activity Restrictions: use walker Shower Restrictions: No Driving Restrictions: Yes Assistance Devices: Walker Additional Instructions or Follow Up instructions: You came to the hospital with skin excoriations from scratching The itching skin is due to kidney failure, your kidneys are not clearing your body's waste products and these accumulate in your skin Use a water based emollient (such as eucerin) Follow up with stummel selector (kidney doctor) when you return to [place] Chronic kidney disease: based on your records from [place], you developed kidney disease sometime after 2014. In Nov 2016, you were in the ED [place] twice with Creatinine (kidney function # ) of 2.8. It was 3.7 here, IMPROVED to 2.7 BUN 65 YOur phosphorus (cleared by kidneys) is a little elevated and calcium low ( common in kidney failure) We started calcium acetate. Your kidney function needs to be followed closely once you return to [place] Eat a low salt diet so you do not retain fluid (the kidneys have to deal with fluid) You are anemic, and have been anemic in [place] as well (hemoglobin (hgb) in [place] was as low as 6.6 You were transfused w/ 2 units of blood here On the day of discharge your Hgb/hct (hematocrit) are 8.0 and 24.1 You have atrial fibrillation. Irregular heart rate (your brother thinks he recalls you having this diagnosis before but it is not in the records we got from [place] There is a risk of stroke with atrial fibrillation. The new blood thinners for atrial fibrillation can not be given with renal function as low as yours. The other option is coumadin (warfarin). Warfarin requires regular blood checks and has a narrow range. We do not feel safe starting this if you are moving back to [place] shortly. Discuss this (risks, benefits) with your primary doctor of blood thinner For now take aspirin 81 mg daily (which offers only limited stroke protection) For rate control we increased your metoprolol to 37.5 mg twice daily from 25 mg twice daily (take 1.5 25 mg tabs twice daily of the metoprolol) REgarding possilbe causes of atrial fibrillation echo ; normal heart squeeze and ejection fraction. Valves notable for moderate mitral regurgitation TSH (thyroid function normal on your home levothyroxine) no evidence of heart attack, troponins normal COPD (which you have) can contribute to risk of COPD Urinary retention: this was noted in [place] as well but improved while you were here EMpty your bladder frequently to avoid risk of infection You do not have a urinary tract infection here Your doctor in [place] should consider referral to urologist Skin excoriation in groin/ perineum from chronic urinary incontinence Use a barrier creme like calmoseptin Physical Therapy evaluated you and found you were strong enough to walk with a walker and did not recommend Be up out of bed as much as possible to not lose strength. No Smoking: If you smoke, Please STOP! Call for help. Follow-up with: Vijay Renteria MD [Primary Care Provider] -
[2017-04-09 11:37] LABS: BASOPHILS # (AUTO) 0.1 10^3/uL (0.0-0.1); BASOPHILS % (AUTO) 1.9 %; EOSINOPHILS % (AUTO) 24.3 %; HCT - HEMATOCRIT 24.1 % (37.0-47.0); LYMPHOCYTES # (AUTO) 0.6 10^3/uL (1.5-3.5); LYMPHOCYTES % (AUTO) 15.6 %; MEAN CORPUSCULAR HGB CONC 33.4 g/dL (32.0-36.0); MEAN CORPUSCULAR VOLUME 92.9 fL (81.0-99.0); MEAN PLATELET VOLUME 6.9 fL (7.9-10.8); MONOCYTES # (AUTO) 0.4 10^3/uL (0.0-1.0); MONOCYTES % (AUTO) 10.4 %; NEUTROPHILS # (AUTO) 1.9 10^3/uL (1.5-6.6); NEUTROPHILS % (AUTO) 47.8 %; NUCLEATED RED BLOOD CELLS AUTO 0.1 /100WBC; RED BLOOD COUNT 2.59 10^6/uL (4.20-5.40); RED CELL DISTRIBUTION WIDTH 19.4 % (12.0-15.0); UNCORRECTED WHITE BLOOD COUNT 4.1 x10^3/uL; WHITE BLOOD COUNT 4.1 x10^3/uL (4.8-10.8)
[2017-04-09 11:58] LABS: CALCIUM 7.1 mg/dL (8.5-10.3); CREATININE 2.7 mg/dL (0.4-1.0); POTASSIUM 3.9 mmol/L (3.5-5.0)
[2017-04-09] MEDS ORDERED: METOPROLOL TARTRATE 25 MG TABLET PO SCH (12:00)
[2017-04-09] MEDS ORDERED: CALCIUM ACETATE 667 MG CAPSULE PO SCH (12:00)
[2017-04-09] MEDS: LEVALBUTEROL 1.25 MG INH SCH (13:44)
[2017-04-09] MEDS: SODIUM CHLORIDE INHALATION 3 ML NEB INH PRN (13:44)
--- NOTE | 2017-04-12 08:21 | DISCHARGE SUMMARY ---
DATE OF ADMISSION: 04/06/2017 DATE OF DISCHARGE: 04/09/2017 PRIMARY CARE PHYSICIAN: Primary care provider here in [place] is Vijay Renteria MD DISCHARGE DIAGNOSES 1. Vczzl-[id number]-[id number] renal failure. 2. Anemia likely related to chronic kidney failure. 3. Atrial fibrillation with a rapid ventricular response. 4. Urinary retention. 5. Intertrigo and cutaneous yeast overgrowth, and perineal excoriation from incontinence. CONSULTATIONS:Physical Therapy. PROCEDURES: None. DIAGNOSTIC IMAGING STUDIES #1. Chest x-ray 04/06/2017: Mild pulmonary fluid overload. #2. Renal ultrasound 04/07/2017 1. Bilateral echogenic renal cortex, findings nonspecific but associated chronic renal insufficiency. 2. Mild right pelviectasis. No hydronephrosis, no renal stones or mass. #3. Echocardiogram done 04/07/2017: Moderate concentric left ventricular hypertrophy with an overall normal EF of 65% to 70%, diastolic function was indeterminate. No wall motion abnormalities. Valves were notable for mild mitral regurgitation. There was a severe increase in the left atrial volume index, and the tricuspid had mild to moderate tricuspid regurgitation with moderately elevated right heart pressures with an RVSP of 52 mmHg. #4. EKG on admission: Normal sinus rhythm with a normal axis and a short ID interval at 0.59. #5. Telemetry monitoring. The patient did develop atrial fibrillation with a rapid ventricular response with a rate in the one-teens. LABORATORY DIAGNOSTICS CHEMISTRY: Admission chemistries with sodium 135, potassium 4.7, chloride 107, bicarbonate 17, BUN 86, creatinine 3.5; this is compared with records from [place], which indicated a creatinine of 2.8 in November of this year. On discharge, CO2 was still low at 18, her BUN was 65 and creatinine 2.7, calcium was 7.1, phosphorus was 5.0. A BNP on admission was 1132; on the subsequent day following 2 units of red cells, it was 1796. It was not rechecked after diuresis. HEMATOLOGY: White count was 6.5 on admission, 4.1 on discharge. Hemoglobin and hematocrit were 7.2 and 21.5 on admission, and 8.0 and 24.1 on discharge. Platelets 297 on admission, 167 on discharge. IRON STUDIES: Ferritin was 1086, iron 107, TIBC 197%, percent sat 54, transferrin 141, and LDH was 325. URINALYSIS: Trace protein, otherwise unremarkable; no bacteria, 0-5 red cells, 0 -3 white cells, and rare squamous cells. BRIEF HOSPITAL COURSE BY PROBLEM: Patient is a 81-year-old female, who until very recently lived in [place]. She [place] was concerned about her care there. She had been in a assisted facility after having been diagnosed with what appear to be chronic kidney disease in November with a creatinine of 2.8. She had already been seen by Nephrology there, who attributed her chronic kidney disease to "atherosclerotic disease." She also was significantly anemic there and had twice been presented to the ER with hemoglobin in the 6 range, and refused admission but was transfused and sent home; this was in [place]. Since her family has had her, she was brought into the emergency room due to such severe pruritus, from the uremic pruritus, as she was scratching her skin open. On presentation, her creatinine was 3.7, which was higher than her baseline, and she was again anemic with a hemoglobin of 7.0, although she denied symptomatology with this. She was also "taking NSAIDS like candy" for chronic pain per family. PROBLEM #1: [id number] kidney injury. She was hydrated with 1 liter of fluid and was given 2 units of packed red cells, and her BUN and creatinine improved significantly to what appears to be her baseline in 12.01. She is nonoliguric and appears euvolemic at discharge. There was no orthopnea or subjective/objective shortness of breath / hypoxia with volume repletion but was given a single dose of IV Lasix between red cell. She has a metabolic acidosis, which was already noted in [place], as well as a mild early hypocalcemia and hyperphosphatemia. We did start her on calcium acetate 1 tablet with each meal, her phosphorus and calcium should be reevaluated if the Phoslo needs any dose increase. She was started on Bicitra evidently in [place] but is not on that currently. The family had indicated a desire to bring her back to [place] in the very near future, even the following week, so we did not set her up with Nephrology followup here. PROBLEM #2: Anemia, which appears to be anemia related to chronic kidney disease. She has already received transfusions in [place]; also they had started her on erythropoietin there. She did receive 2 units of packed red cells here due to symptoms of shortness of breath, and post count as above was 8.0 and 24. There was no evident source of bleeding with her anemia, and a negative hemocult stool had already been done in [place]. PROBLEM #3: Diarrhea. When the family brought her into the hospital, they reported that she was having chronic loose stools at home. This was not found on hospitalization, and there was no indication for stool cultures. PROBLEM #4: Atrial fibrillation. During the course of hospitalization, the patient was monitored on telemetry. She did have atrial fibrillation with a rate in the one-teens to 120s. There is no documented history of atrial fibrillation, although the brother thinks he has heard that she had it before. Of note, in her [place] records, she was seen to have occasional nonsustained ventricular tachycardia with 6 to 9-beat runs of V-tach, and had an echo there already with normal LV function and is on metoprolol. Her metoprolol dose was 25 mg twice daily; that was increased to 37.5 mg twice daily, and possibly she would tolerate further titration to 50 mg twice daily. This had her resting heart rate under 100, and she still had an adequate blood pressure with that. At this time, her GFR is right on the border of any of the new oral anticoagulants. I discussed with her that warfarin at this time, given that we do not know how soon she will be getting followup, would be somewhat unsafe, and advised that when she gets back to [place], to have a discussion of risks/ benefits with her primary provider, and at this time, she is advised to only take aspirin, realizing that it offers relatively low protection with atrial fibrillation. Her CHADS2-VASc score is a 3. PROBLEM #5: Urinary retention. When the patient receives Lasix, she was noted to have significant incontinence with frequent dribbling, and on post- catheterization, she actually had 900 mL on one occasion. This retention was already documented in [place]. Part of it here seems to have been due to a dose of Haldol when she was agitated and pulling at her IV line and telemetry the night before. When she was back to her at her baseline lucidity, she was able to void and not have any postvoid residual. PROBLEM #6: Perineal excoriation. Patient has not only significant intertrigo and what appears to be yeast overgrowth, but also shallow ulcerations around her perineal and perianal area, most likely from chronic urinary incontinence. We started a barrier cream, and she should continue using that at home, such as Calmoseptine or Desitin, and is advised to toilet frequently, at least every 2 hours, to avoid incontinence and dribbling; and as above, she had a normal UA with no sign of infection. PROBLEM #7: Uremic pruritus. She at home has had substantial itching and was breaking her skin open. We started a water-based emollient, and she is advised to continue that on discharge. We were unable to clip her fingernails here, but ideally, she would have her nails clipped to avoid breaking her skin. PROBLEM #8: Hypothyroidism. She is on levothyroxine at home, and her TSH was in the normal range here on her home dose of levothyroxine, with her TSH being 1.59. PROBLEM #7: Possible cognitive decline. In the hospital, it was not entirely clear whether the patient was simply cantankerous or agitated versus delirious. On one night, she actually required 2.5 mg of Haldol, as she was pulling at her catheter, pulling at her telemetry leads, and pulling at her IV. This may have been ing; however, on the subsequent day, 24 hours later, when she had not received any Haldol, she was alert and responsive and was asking logical questions. She indicates that she does still want her healthcare problems addressed, and her family is planning to bring her back to [place]. In the event that she is incapacitated, her brother, here, is her durable power of reinforcer, and evidently when she goes back to [place], that gets transferred back over to another one of her siblings. Her COR STATUS is a DNR. It was recommended to her to also consider seriously what her goals of care are, as on occasion she was refusing her medications, and she obviously has a number of chronic medical problems. If she stays locally a palliative care consult would be reasonable. DISCHARGE MEDICATIONS 1. Metoprolol tartrate, dose is increased from 25 mg twice daily to 37.5 mg twice daily, with possible outpatient titration upward if she tolerates 50 mg twice a day for her atrial fibrillation. 2. New prescription for Nystatin, application to her groin folds daily. 3. New prescription for calcium acetate 667 mg orally 3 times daily with meals; she will need a followup of her calcium and phosphorus levels. 4. Levothyroxine 150 once daily; she will continue that. 5. Tylenol 650 mg every 4 hours as needed for pain. 6. She can continue taking her Flonase 1 spray intranasally twice daily. 7. She can continue her home DuoNebs. 8. She can continue her omeprazole 20 mg once daily. 9. She is to stop taking any NSAIDs due to her renal failure. ON FOLLOWUP 1. She needs a repeat evaluation of her hemoglobin and hematocrit; consider further erythropoietin dosing. 2. For her renal failure, she requires ongoing followup with a photonics engineering technician and reinforcement to not take any nonsteroidals; evidently she takes nonsteroidals. 3. Revaluate her cutaneous breakdown of her perineum. 4. Revaluate her goals of care. 5. Have a discussion with the patient regarding risks and benefits of anticoagulation for her atrial fibrillation for stroke prevention, and if her renal function at that time allows any of the novel oral anticoagulants. PHYSICAL EXAMINATION ON THE DAY OF DISCHARGE VITAL SIGNS: Afebrile 36.5, heart rate 111 in the morning and later measured 80- 100, blood pressure 117/64, respiratory rate 12, oxygen saturation 97% on room air. GENERAL: Patient on awakening today is alert and appropriate, and able to hear with her hearing aid turned on and was not agitated or irritable in discussion. Her brother also was present and indicated the plan to be able to take her home today. HEAD, EARS, EYES, NOSE, AND THROAT: She has graying hair. Her eyes have a very slight amount of crusting and a little bit of conjunctival irritation. Her pupils are equal. Extraocular movements are intact. She is wearing a hearing aid on the left, which I believe is essentially with a cochlear implant. Oral mucosa is very slightly dry on the tongue. NECK: Supple. LUNGS: Respirations are unlabored at rest. There are no appreciable extra sounds. Of note, she only had slight crackles in the bases on the day of admission. CARDIAC: Her heart rate is an irregularly irregular S1, S2, and a rate currently at the time of exam was approximately 84. ABDOMEN: Rounded with positive bowel sounds and is soft and nontender. There is no suprapubic tenderness. Her perineum and groin folds are notable for light pink erythema with an appearance of yeast overgrowth, and she has multiple shallow excoriations in her deep groin folds and labia, as well as her perianal area. None of these are bleeding. EXTREMITIES: Her lower extremities are notable for large lower extremities with perhaps a trace to +1 edema. JOB #: [id number] EXT JOB #:[id number] [facility] CENTERShayy
== END 2017-04-09 21:25 | disposition home or self-care (01) | DRG 683 ==
LOC: ED 18:46 → MS 22:00 → ED 22:37 → MS 04-08 18:31
PROVIDERS: ADMIT Specialist; ATTEND Nurse Practitioner
PROC: 30233N1 Transfusion of Nonautologous Red Blood Cells into Peripheral Vein, Percutaneous Approach (ICD-10-PCS; principal; 2017-04-07)
DX: N19 Unspecified kidney failure (principal); R21 Rash and other nonspecific skin eruption; N17.9 Acute kidney failure, unspecified; B37.89 Other sites of candidiasis; E87.2 Acidosis; D64.9 Anemia, unspecified; I47.2 Ventricular tachycardia; J45.909 Unspecified asthma, uncomplicated; E86.0 Dehydration; I50.9 Heart failure, unspecified; D63.1 Anemia in chronic kidney disease; I48.91 Unspecified atrial fibrillation; R33.9 Retention of urine, unspecified; L30.4 Erythema intertrigo; S30.814A Abrasion of vagina and vulva, initial encounter; R15.9 Full incontinence of feces; L29.9 Pruritus, unspecified; E83.51 Hypocalcemia; E83.39 Other disorders of phosphorus metabolism; R19.7 Diarrhea, unspecified; R32 Unspecified urinary incontinence; E03.9 Hypothyroidism, unspecified; H91.90 Unspecified hearing loss, unspecified ear; R29.6 Repeated falls; Z87.891 Personal history of nicotine dependence; J44.9 Chronic obstructive pulmonary disease, unspecified; R41.89 Other symptoms and signs involving cognitive functions and awareness; Z88.0 Allergy status to penicillin; Z88.5 Allergy status to narcotic agent; Z88.2 Allergy status to sulfonamides; Z88.1 Allergy status to other antibiotic agents; Z79.82 Long term (current) use of aspirin; Z90.49 Acquired absence of other specified parts of digestive tract; Z66 Do not resuscitate
CPT/HCPCS: 36415; 51701; 71010; 76770; 80048; 80053; 81001; 81003; 82550; 82553; 82607; 82728; 83540; 83605; 83615; 83690; 83735; 83880; 84100; 84443; 84466; 84484; 85025; 85044; 85610; 86780; 86850; 86900; 86901; 86920; 87040; 87086; 93005; 93010; 93306; 94640; 96374; 96375; 99284; 99285

== ENCOUNTER 2017-04-11 12:21 | Inpatient (IN) | payer MEDICARE ==
--- NOTE | 2017-04-11 12:59 | ED Physician Documentation ---
PD HPI SKIN - Stated complaint Stated Complaint: ARM LESIONS - Chief complaint Chief Complaint: Wound - History obtained from History obtained from: Patient, Family - History of Present Illness Timing - onset: How many days ago (has had couple of weeks of weakness, itching , skin rash. Came from [place] recently to live with her brother and has had general weakness, poor appetite, skin rash. Seen in ED 5 days ago and was here for 2-3 days, released 2 days ago with improvement in renal function (down to baseline Creatinine per discharge planning note). Family (brother and his ) say the patient has had general weakness, still less intake and still itching since discharge. They feel she needs (and needed) SNF care. She is minimally out of bed and needing a lot of care at home, per family. She does like soda to drink and does not like to drink water. Uses Ibuprofen for pains at times. Not much to eat the past couple of days.) Timing - duration: Days Timing - details: Gradual onset, Still present Location: Bodywide (having itching in arms mostly, but some diffusely.) Review of Systems Unable to obtain: Other (info from family as well) Ten Systems: 10 systems reviewed and negative Constitutional: denies: Fever Ears: reports: Loss of hearing (chronic, with hearing aids.) Throat: denies: Sore throat Respiratory: denies: Dyspnea, Cough GI: denies: Abdominal Pain, Vomiting, Diarrhea : reports: Incontinent Skin: reports: Rash (excoriations of arms without signs of infection) Musculoskeletal: reports: Joint pain (she says her right hip hurts without noted injury/fall.) Neurologic: reports: Generalized weakness. denies: Focal weakness, Numbness, Headache Psychiatric: denies: Depressed, Suicidal Endocrine: reports: Weight loss (in past couple of weeks, mild) Immunocompromised: denies: Immunocompromised PD PAST MEDICAL HISTORY - Past Medical History Cardiovascular: Congestive heart failure, Valve disorder Respiratory: Asthma HEENT: Macular degeneration, Chronic hearing loss Musculoskeletal: Osteoarthritis Derm: Other - Past Surgical History General: Cholecystectomy, Hiatal hernia repair, Colonoscopy /TOE STAPLER: Other HEENT: Cochlear implant - Present Medications Home Medications: Ambulatory Orders Medication Instructions Recorded Confirmed Fluticasone [Flonase] 1 spray LOTTIE BID 04/07/17 04/07/17 Ipratropium/Albuterol [Duoneb] 3 ml INH QID PRN 04/07/17 04/07/17 Levothyroxine [Synthroid] 150 mcg PO DAILY 04/07/17 04/07/17 Omeprazole 20 mg PO DAILY 04/07/17 04/07/17 Acetaminophen [Tylenol] 650 mg PO Q4HR PRN #0 tablet 04/09/17 Calcium Acetate [Phoslo] 667 mg PO TIDWM #90 capsule 04/09/17 Levothyroxine [Synthroid] 150 mcg PO QDAC tablet 04/09/17 Metoprolol Tartrate 37.5 mg PO BID #60 tablet 04/09/17 Nystatin [Nystop] 1 applic TOP BID #1 bottle 04/09/17 - Allergies Allergies/Adverse Reactions: Allergies Allergy/AdvReac Type Severity Reaction Status Date / Time amoxicillin trihydrate * Allergy Unknown Verified 04/06/17 19:15 [From Augmentin] codeine Allergy Unknown Verified 04/06/17 19:15 erythromycin base Allergy Unknown Verified 04/06/17 19:15 loratadine [From Claritin] Allergy Unknown Verified 04/06/17 19:15 potassium clavulanate * Allergy Unknown Verified 04/06/17 19:15 [From Augmentin] propoxyphene HCl * Allergy Unknown Verified 04/06/17 19:15 [From Darvon] Sulfa (Sulfonamide Allergy Unknown Verified 04/06/17 19:15 Antibiotics) tetracycline Allergy Unknown Verified 04/06/17 19:15 - Social History Does the pt smoke?: No Smoking Status: Never smoker Does the pt drink ETOH?: No Does the pt have substance abuse?: No - Immunizations Immunizations are current?: Yes - POLST Patient has POLST: No PD ED PE NORMAL - Vitals Vital signs reviewed: Yes - General General: Alert and oriented X 3, Well developed/nourished - HEENT HEENT: Atraumatic, Pharynx benign - Neck Neck: Supple, no meningeal sign, No adenopathy - Cardiac Cardiac: RRR, No murmur - Respiratory Respiratory: Clear bilaterally - Abdomen Abdomen: Soft, Non tender - Female Female : Other (just external exam, with redness around perirectal area seem c /w some yeast. ) - Back Back: No CVA TTP - Derm Derm: Warm and dry, Other (multiple excoriated superficial sores on arms. There is some perirectal redness without breakdown. No sacral nor gluteal sores. ) - Extremities Extremities: Other (right hip with guarded movement, but no noted deformity. ) - Neuro Neuro: No motor deficit, Normal speech Results - Vitals Vitals: Vital Signs - 24 hr 04/11/17 04/11/17 04/11/17 12:24 14:31 15:05 Temperature 36.5 C 36.4 C L Heart Rate 68 72 91 Respiratory 14 18 16 Rate Blood Pressure 96/54 L 104/56 L 88/54 L O2 Saturation 100 97 97 04/11/17 15:12 Temperature Heart Rate 92 Respiratory 16 Rate Blood Pressure 94/42 L O2 Saturation 97 Oxygen O2 Source Room air - Labs Labs: Laboratory Tests 04/11/17 04/11/17 04/11/17 13:45 13:45 14:02 WBC 4.4 L RBC 2.68 L Hgb 8.3 L Hct 25.3 L MCV 94.3 MCH 31.1 H MCHC 33.0 RDW 19.6 H Plt Count 146 MPV 7.8 L Neut # Not Reportable Lymph # Not Reportable [place] # Not Reportable Eos # Not Reportable Baso # Not Reportable Absolute Nucleated RBC Not Reportable Band Neuts % (Manual) 3 Neutrophils # (Manual) 2.2 Lymphocytes # (Manual) 0.8 L Monocytes # (Manual) 0.1 Eosinophils # (Manual) 1.3 H Basophils # (Manual) 0.0 Nucleated RBCs Not Reportable Platelet Estimate NORMAL (130-450,000) RBC Morph Micro Appear 1+ ANISOCYTOSIS Sodium 138 Potassium 4.5 Chloride 109 Carbon Dioxide 18 L Anion Gap 11.0 BUN 71 H Creatinine 3.2 H Estimated GFR (MDRD) 14 L Glucose 74 Calcium 7.4 L Magnesium 2.1 Total Bilirubin 0.8 AST 70 H ALT 68 H Alkaline Phosphatase 58 Total Protein 6.1 L Albumin 2.5 L Globulin 3.6 Albumin/Globulin Ratio 0.7 L Lipase 18 L Urine Color YELLOW Urine Clarity HAZY Urine pH 5.5 Ur Specific [place] 1.015 Urine Protein 30 H Urine Glucose (UA) NEGATIVE Urine Ketones NEGATIVE Urine Occult Blood MODERATE H Urine Nitrite POSITIVE H Urine Bilirubin NEGATIVE Urine Urobilinogen 0.2 (NORMAL) Ur Leukocyte Esterase TRACE H Urine RBC 0-5 Urine WBC 11-25 H Ur Epithelial Cells FEW Renal Tubular Ur Squamous Epith Cells MOD Squamous H Amorphous Sediment Few Urine Bacteria Many H Ur Microscopic Review INDICATED Urine Culture Comments INDICATED - Rads (name of study) right hip Radiology: Prelim report reviewed (she refused hip xray when got to Imaging dept. ) PD MEDICAL DECISION MAKING - ED course Complexity details: reviewed results (she does have new UTI (not present on prior admission), with mild hypotension. Improved with some IV fluids, but do not want to fluid overload, given her renal failure. Started IV abx here in ED. ), considered differential, d/w patient, d/w application packaging consultant (Dr. Hurt, Hospitalist) Departure - Departure Disposition: 66 [facility] DC/Xfer Clinical Impression: Dehydration, Weakness, Renal failure UTI (urinary tract infection) Qualifiers: Urinary tract infection type: acute cystitis Hematuria presence: without hematuria Qualified Code(s): N30.00 - Acute cystitis without hematuria Hypotension Qualifiers: Hypotension type: unspecified hypotension type Qualified Code(s): I95.9 - Hypotension, unspecified Condition: Stable Record reviewed to determine appropriate education?: Yes
[2017-04-11] MEDS ORDERED: EMOLLIENT CREAM 57 GM TUBE TOP STA (13:44)
[2017-04-11 14:04] LABS: ALBUMIN/GLOBULIN RATIO 0.7 (1.0-2.2); BILIRUBIN,TOTAL 0.8 mg/dL (0.2-1.0); CALCIUM 7.4 mg/dL (8.5-10.3); CREATININE 3.2 mg/dL (0.4-1.0); MAGNESIUM 2.1 mg/dL (1.7-2.8); POTASSIUM 4.5 mmol/L (3.5-5.0); TOTAL PROTEIN 6.1 g/dL (6.7-8.2)
[2017-04-11 14:06] LABS: EOSINOPHILS % (AUTO) 26.9 %; HCT - HEMATOCRIT 25.3 % (37.0-47.0); HGB - HEMOGLOBIN 8.3 g/dL (12.0-16.0); LYMPHOCYTES % (AUTO) 16.2 %; MEAN CORPUSCULAR HEMOGLOBIN 31.1 pg (27.0-31.0); MEAN CORPUSCULAR VOLUME 94.3 fL (81.0-99.0); MEAN PLATELET VOLUME 7.8 fL (7.9-10.8); MONOCYTES % (AUTO) 7.2 %; NEUTROPHILS % (AUTO) 48.7 %; RED BLOOD COUNT 2.68 10^6/uL (4.20-5.40); RED CELL DISTRIBUTION WIDTH 19.6 % (12.0-15.0); UNCORRECTED WHITE BLOOD COUNT 4.4 x10^3/uL; WHITE BLOOD COUNT 4.4 x10^3/uL (4.8-10.8)
[2017-04-11 14:27] LABS: BILIRUBIN,URINE NEGATIVE (NEGATIVE); PH,URINE 5.5 PH (5.0-7.5)
[2017-04-11] MEDS ORDERED: SODIUM CHLORIDE 0.9% 500 ML IV ONE ×2 (14:33→15:14)
[2017-04-11 14:39] LABS: UA w/ MICROSCOPIC CHARGE YES
[2017-04-11 14:58] LABS: UR CULTURE IF IND INDICATED
[2017-04-11] MEDS ORDERED: cefTRIAXone 1 GM in SODIUM CHLORIDE 0.9% MINIBAG 100 ML IV STA (15:05)
[2017-04-11] MEDS ORDERED: cefTRIAXone 1 GM VIAL ONE (15:06)
[2017-04-11 15:12] LABS: BAND NEUTROPHILS % (MANUAL) 3 %; BASOPHILS % (MANUAL) 1 %; EOSINOPHILS % (MANUAL) 29 %; LYMPHOCYTES % (MANUAL) 18 %; NEUTROPHILS % (MANUAL) 47 %
[2017-04-11 15:13] LABS: NP AUTO DIFFERENTIAL? YES; NP MAN DIFFERENTIAL? NO; PLATELET ESTIMATE, MANUAL NORMAL (130-450,000) (NORMAL)
[2017-04-11] MEDS ORDERED: FLUCONAZOLE 100 MG TABLET PO STA (15:27)
[2017-04-11] MEDS ORDERED: SODIUM CHLORIDE FLUSH 0.9% 10 ML SYRINGE IVP PRN (15:38)
[2017-04-11] MEDS ORDERED: LEVALBUTEROL 1.25 MG INH PRN ×2 (16:11→17:39)
[2017-04-11] MEDS ORDERED: METOPROLOL TARTRATE 50 MG TABLET PO STA (16:12)
[2017-04-11] MEDS ORDERED: ACETAMINOPHEN 500 MG TABLET PO PRN (16:13)
[2017-04-11] MEDS ORDERED: diphenhydrAMINE 25 MG CAPSULE PO PRN (16:18)
[2017-04-11] MEDS ORDERED: SODIUM CHLORIDE INHALATION 3 ML NEB INH PRN ×2 (16:48→17:39)
[2017-04-11] MEDS ORDERED: SODIUM CHLORIDE 0.9% 1,000 ML IV SCH (17:30)
[2017-04-11] MEDS: FLUCONAZOLE 100 MG TABLET PO SCH (17:48)
[2017-04-11] MEDS: CALCIUM ACETATE 667 MG CAPSULE PO SCH (17:49)
[2017-04-11] MEDS: diphenhydrAMINE 25 MG CAPSULE PO PRN (17:50)
[2017-04-11] MEDS ORDERED: ZINC OXIDE 20% OINT 28.35 GM TUBE TOP ONE (19:30)
[2017-04-11] MEDS ORDERED: ZINC OXIDE 20% OINT 28.35 GM TUBE TOP PRN (19:32)
[2017-04-11] MEDS: METOPROLOL TARTRATE 25 MG TABLET PO SCH (22:18)
[2017-04-11] MEDS: NYSTATIN POWDER 15 GM TOP SCH (22:22)
[2017-04-11] MEDS: MIN OIL/DIMETHICON/COCONUT OIL 92 GM TUBE TOP SCH (22:23)
--- NOTE | 2017-04-12 01:48 | HISTORY & PHYSICAL EXAMINATION ---
DATE OF ADMISSION: 04/11/2017 PRIMARY CARE PHYSICIAN: Vijay Renteria MD; her primary provider in [place] was a Dr. Cotter. [place] castro details of contact information for him is unknown. CHIEF COMPLAINT: Patient does not have any particular complaints; she just requests water. Family say s they are bringing her here because they feel she needs usp facility care. HISTORY OF PRESENT ILLNESS: For additional details, please see the history and physical from Dr. Lilia King dated 04/06/2017, as well as Johan Urrutia's detailed discharge summary from 04/09/2017. Patient is a 81-year-old female, who was just discharged from the hospital on Wednesday04/09/2017 follo wing an admission that was primarily for uremic pruritus. At that time, she was also identified as vizcaino ving gpgya-if-eoeymzy kidney injury, which resolved after IV fluid and packed red cells, and chronic anemia with ehsme-ir-dlxoyrk anemia status post 2 units of packed red blood cells, with improvement t o her hemoglobin of over 8. Prior to discharge, she was evaluated by Physical Therapy, who signed off indicating that she was able to get up and ambulate with a walker independently, and the family reynaldo cated a desire to bring her back to [place], and she was discharged late on Wednesday. According to the family, since being home, she is eating less and having more weakness, and is contin uing to have pruritus which was previously identified as uremic pruritus from her chronic kidney dise ase, and she was advised to a water-based emollient. On presentation to the emergency room, she is afebrile, has a modestly low blood pressure with a syst olic between mid 90s and 100, heart rate is 68-90, she has no oxygen requirement with a room air oxyg enation of 97% and a respiratory rate of 16. Since discharge on Wednesday, repeat blood work indicates t hat her BUN and creatinine, which were 65 and 2.7 approximately 48 hours ago, have gone back up to 71 and 3.2. Of note, the family indicates that the patient has been demanding ibuprofen for her chronic aches and pains, and it is not clear how much of that she has taken. Additionally, they say that she does not want to drink any water and is requesting primarily soda pop. Additionally, though she has no fever, a repeat urinalysis that was unremarkable on 04/06/2017 now has many bacteria, trace protei n, and moderate occult blood. Of note, this UA also has a fair number of squamous cells, so it is a s uboptimal urine sample. She was empirically started on ceftriaxone in the emergency room and was also given a dose of Diflucan 100 mg. Prior to obtaining lab work in the ED, case management had already gone down to see the patient, and she would actually already have a [facility] bed available to her. Of note, prior to the brothers flying her out here from [place] on 03/18/2017, she had been at a [facility] facility in [place], part of the [facility]. PAST MEDICAL HISTORY 1. Chronic kidney disease, which was diagnosed at some point in 11/2016. At that time, she had a crea tinine identified in the 2.8 range. She had been evaluated by a civil engineer, where a renal ultrasoun d was normal; after a nephrology workup, she was determined to have "atherosclerotic kidney disease." 2. Anemia of chronic disease related to chronic kidney failure. 3. Atrial fibrillation, not on anticoagulation. 4. Hypothyroidism. 5. COPD with history of COPD exacerbations, none current. 6. History of urinary retention identified in [place] on renal and bladder ultrasound. 7. History of tobacco use, no longer smoking. 8. Chronic metabolic acidosis, non-gap due to her chronic kidney disease. PAST SURGICAL HISTORY Includes: 1. Cholecystectomy. 2. History of a foot fracture. ALLERGIES 1. AMOXICILLIN. 2. CODEINE. 3. ERYTHROMYCIN. 4. LORATADINE. 5. POTASSIUM CLAVULANATE. 6. PROPOXYPHENE. 7. SULFA. 8. TETRACYCLINE. MEDICATIONS Patient was discharged from the hospital 2 days ago with the following list of medications. New presc riptions were: 1. Calcium acetate or PhosLo 667 mg 3 times daily with meals. 2. Metoprolol tartrate 37.5 mg twice daily, which was an increase from her 25 mg twice daily dosing. 3. Also Nystatin 1 application twice daily to groin folds. She continued on her prior medications of: 1. Levothyroxine 150 mcg once daily. 2. Tylenol 650 mg every 4 hours as needed for pain. 3. Omeprazole 20 mg once daily. 4. DuoNeb 4 times daily as needed for dyspnea or wheezing. 5. Fluticasone nasal spray twice daily. SOCIAL HISTORY: Up until very recently, she was living in [place], where most recently she was trans ferred to a skilled facility until 03/18/2017, when her brother, Victor Manuel, here, flew her out [place] [facility] [place] be closer to him, due to concerns that her grandchildren were "robbing her blind." In the t parveen between 03/18/2017 and the admission earlier this week, her frwkxq-rs-lkv, that is her brother's , was having an incredibly difficult time meeting her demands in home, with the patient complaini ng of chronic pain, insisting on ibuprofen despite instructions that this was contraindicated with he r kidney disease, also with chronic itching due to her uremic pruritus, she was in the shower in the middle of the night; and due to her hearing impairment, despite a cochlear implant plant, she is ofte n cantankerous when she is unable to hear. On Wednesday03/09/2017, when the patient was discharged, her family had intentions of [place] [facility] other siblings of Victor Manuel wished to bring her back. HABITS TOBACCO: Patient is an ex-smoker, having stopped approximately 25 years ago when she smoked up to 2 p acks per day. ALCOHOL: She has no history of alcohol use. MARITAL: She was twice, twice with her prior husbands . FAMILY HISTORY: Her parents of old age. She has 3 brothers, one of whom is of uncertain causes. Her brother, Victor Manuel, lives here on [facility] and is 81 years old. She has 2 children, one of whom is due to an overdose on opiates in the 40s, and the other is healthy. REVIEW OF SYSTEMS Since the time of discharge, this is not obtained from the patient, who in the emergency room says "I cannot hear you" and simply makes demands for water saying "water." Per the family's report today, a nd this is obtained secondhand from the ER, over the last 48 hours since discharge home, she has gene ral weakness, is taking less oral intake, refuses water, and only wants to drink soda, and is request ing ibuprofen for pain. She has had very little to eat over the past several days. The review of syst ems is secondhand from the ER physician, Dr. Ortiz's review from the family, since the patient is n ot responding to questions. GENERAL: They deny any fever. HEENT: Hearing: She has a chronic cochlear implant; unfortunate her hearing aid is not with her. Ther e is no complaint of sore throat. RESPIRATORY: There is no complaint of shortness of breath or cough. GASTROINTESTINAL: No abdominal pain, vomiting, or diarrhea; and of note, on a prior presentation, the y had reported chronic diarrhea, none of which was noted here. GENITOURINARY: She is incontinent. SKIN: As per the HPI, she has chronic scratching of her skin due to uremic pruritus. MUSCULOSKELETAL: There have been no falls at home. She was evaluated by Physical Therapy on Wednesday, w ho indicated she had no skilled needs. NEUROLOGIC: No new confusion. PSYCHIATRIC: There are no new symptoms suggestive of delirium. ENDOCRINE: Continue to take her levothyroxine. PHYSICAL EXAMINATION Patient is seen in the emergency room. LAST VITAL SIGNS: She is afebrile 36.4, heart rate 91. Blood pressure, there have been 4 sets taken; she is 88-104 over 42-56. GENERAL: The patient is lying on the stretcher on her side in the emergency room scratching her skin. When I asked her if she recalls me from the other day, she says water. When I asked her what has hap pened since she left here, she says, "Stop yakking at me, I'm sitting here scratching myself to , and all you all do is keep yakking." HEAD, EARS, EYES, NOSE, AND THROAT: She is normocephalic, atraumatic. Her hair is somewhat disheveled . She is wearing glasses. She has anicteric sclerae. Pupils are equal. Extraocular movements are trac cash evenly. She does not follow instructions for the exam currently. Her oral mucosa is moist. She h as poor dentition. No dentures. RESPIRATORY: She is lying flat on the stretcher with unlabored respirations with an adequate room air oxygenation of 97%. On chest exam, she does have slight scattered expiratory wheezing that is high-p itched; this is not heard without auscultation. CARDIAC: She has an irregularly irregular S1, S2 with no appreciable extra sounds. Her periphery is w arm with no diaphoresis. She has approximately 1+ pitting edema in both feet and both pretibial areas . Dorsalis pedis pulses can be palpated as +2. ABDOMEN: Soft, rounded, with positive bowel sounds, and she is nontender to diffuse palpation. Specif ically she has no suprapubic tenderness. She is lying on her side and did not roll over for a deeper exam to appreciate any organomegaly. She is diapered. SKIN: Her skin is notable for excoriated lesions on her forearms, shoulders, and back, and as I am ex amining her, she is scratching her torso. There are no active bleeding sites. She also has very small petechial sized scabbed lesions on her shins and lower extremities. She is diapered, her perianal ar ea is excoriated, as is her perineal area with very shallow ulcerations and the appearance of tinea. NEUROLOGIC: She is currently not able to hear because her hearing device for her cochlear implant is not with her. She, however, is making demands, which suggests that she is lucid. DIAGNOSTIC STUDIES CBC: White count 4.4, hemoglobin 8.3, hematocrit 25.3; platelets 146,000. This is compared with disch arge hemoglobin and hematocrit from 2 days ago, which were 8.0 and 24.1, so this actually reflects im provement. Sodium on Wednesday04/09/2017 was 137, BUN and creatinine 65 and 2.7. Today chemistries are sodium of 1 38, potassium 4.5, chloride 109, bicarbonate 18, BUN 71, creatinine 3.2, calcium is 7.4. AST and ALT are 70 and 68; AST and ALT 48 hours ago were 52 and 49. Urinalysis today, which of note, has moderate squamous cells: Trace protein, moderate occult blood, p ositive nitrite, 11-25 white cells, and many bacteria. Culture is pending. ASSESSMENT AND PLAN PROBLEM #1: Urinary tract infection. Patient was empirically started on ceftriaxone, and as well she received a dose of Diflucan. Certainly given her tinea, this could reflect a fungal urinary tract inf ection. Urine cultures were sent and will be followed. She has no significant findings that would sug gest sepsis. Last week patient had at one point 900 mL of urinary retention. This was after a dose of IV Haldol at night, which had her considerably somnolent. On repeat postvoid residual checked, she h ad reported 300 mL with no residual at the time of discharge. We will recheck post-void residual at [facility] once during this hospitalization. PROBLEM #2: Ticbb-tq-xfllptc kidney injury. Patient has been discharged all of 48 hours ago and has a gain a worsening of her kidney function. As noted, she was taking ibuprofen at home; the ibuprofen wi ll be held. Also she may have been taking last volume in. She already received 1 liter of normal sali ne in the emergency room. I will very gently hydrate her overnight, and do not want to overdo it with her CKD, and we will recheck a creatinine in the morning. She will be strongly advised that she lesley ot have NSAIDs. PROBLEM #3: Weakness. The family has brought her back, saying that they are unable to take care of he r at home, and case management has already explore options at [facility], and she does have a bed availa ble. We will consider discharging her to [facility] tomorrow, especially if the urine culture has result ed. Given that she has not had prior UTIs, this likely is either Escherichia coli or yeast, and Kefle x would be a safe oral option. PROBLEM #4: Chronic kidney disease. The patient was started on PhosLo on the prior admissions; she wi ll be continued. Also on the outpatient records, which were reviewed from [place], they did have her on Bicitra, and I will start that once daily for her non-gap acidosis. PROBLEM #5: Atrial fibrillation. Her rate is currently controlled. It is not clear if she was taking the metoprolol on discharge. Her blood pressure currently is with a systolic just near 100. We will e valuate her blood pressure prior to resuming the metoprolol. She may only tolerate 25 mg once daily. From the looks of her, I do not suspect that her blood pressure currently reflects sepsis, but rather volume depletion. PROBLEM #6: Hypothyroidism. She will continue on her home dose of levothyroxine. PROBLEM #7: Chronic obstructive pulmonary disease. She is already using nebulizers at home. She is a little wheezy currently. We will get a Xopenex nebulizer on presentation to the floor and will avoid DuoNebs, since she did develop a rapid rate after doing that on the most recent admission. PROBLEM #8: Anemia, which is normocytic and has previously been identified as being related to her ch ronic kidney disease. She has received erythropoietin at an outside hospital, status post 2 units of packed red cells on the prior admission, as above, her hemoglobin is adequate and over 8. We will try to avoid unnecessary blood draws, and if her labs are normal tomorrow, we will, again, not draw any additional blood work. PROBLEM #9: Uremic pruritus. We will continue with water-based emollient, and we did not add Atarax o r Benadryl last time with concerns for any delirium. I will add a very low-dose 12.5 mg diphenhydrami ne to see if that offers any relief but will try to avoid increasing that dose. PROBLEM #10: Weakness. Although patient was just evaluated 2 days ago and found not to have needs, we will have Physical Therapy reevaluate her tomorrow. PROBLEM #11: Perianal and perineal excoriation. Patient already had this on the prior admission, and this is most likely related to chronic urinary incontinence. We will continue with a barrier cream to her perineum and perianal area. CODE STATUS: Patient is not responding to my questions about that at the time. On a prior admission, she was a DO NOT RESUSCITATE, VTE PROPHYLAXIS. SHE WILL HAVE SCDS. WE WILL AVOID HEPARIN OR LOVENOX, GIVEN HER LOW GFR. DISPOSITION: Plan is to a usp facility at [facility] either tomorrow or possibly on Wednesday pending urine culture results. Again, I suspect that if anything, this is yeast or E coli, and the li ravindraihood would be pansensitive. JOB #: [id number] EXT JOB #:[id number]
[2017-04-12] MEDS: SODIUM CHLORIDE FLUSH 0.9% 10 ML SYRINGE IVP SCH ×2 (06:24→14:28)
[2017-04-12] MEDS ORDERED: PANTOPRAZOLE 40 MG TABLET PO SCH (07:00)
[2017-04-12] MEDS ORDERED: LEVOTHYROXINE 75 MCG TABLET PO SCH (07:00)
[2017-04-12 07:06] LABS: CALCIUM 7.4 mg/dL (8.5-10.3); CREATININE 3.1 mg/dL (0.4-1.0); POTASSIUM 4.1 mmol/L (3.5-5.0)
[2017-04-12] MEDS ORDERED: ASPIRIN 325 MG TABLET PO SCH (08:00)
[2017-04-12] MEDS: diphenhydrAMINE 25 MG CAPSULE PO PRN (08:09)
[2017-04-12] MEDS: CALCIUM ACETATE 667 MG CAPSULE PO SCH ×2 (08:09→14:27)
[2017-04-12] MEDS: METOPROLOL TARTRATE 25 MG TABLET PO SCH (08:10)
[2017-04-12] MEDS: FLUCONAZOLE 100 MG TABLET PO SCH (08:10)
[2017-04-12] MEDS: MIN OIL/DIMETHICON/COCONUT OIL 92 GM TUBE TOP SCH (08:11)
[2017-04-12] MEDS: NYSTATIN POWDER 15 GM TOP SCH (08:11)
--- NOTE | 2017-04-12 08:40 | PROVIDER PROGRESS NOTE ---
Subjective - Prog Note Date Prog Note Date: 04/12/17 Prog Note Time: 08:40 - Subjective Subjective: STARTED IN ERROR; ' PLEASE SEE DISCHARGE SUMMARY DATED THIS SAME DATE 04/12/2017 Objective - Vital Signs/Intake & Output Vital Signs: Vital Signs x48h Temp Pulse Resp BP Pulse Ox 04/12/17 06:10 36.4 C L 102 H 16 130/70 99 Intake & Output: Intake & Output 04/09/17 04/10/17 04/11/17 04/12/17 23:59 23:59 23:59 23:59 Intake Total 320 360 Output Total 1025 Balance 320 -665 - Lab Results Fish Bones: 04/11/17 13:45 04/12/17 06:19 Other Labs: Lab Results x24hrs 04/12/17 Range/Units 06:19 Sodium 140 (135-145) mmol/L Potassium 4.1 (3.5-5.0) mmol/L Chloride 114 H (101-111) mmol/L Carbon Dioxide 17 L (21-32) mmol/L Anion Gap 9.0 (6-13) BUN 69 H (6-20) mg/dL Creatinine 3.1 H (0.4-1.0) mg/dL Estimated GFR (MDRD) 14 L (>89) Glucose 81 (70-100) mg/dL Calcium 7.4 L (8.5-10.3) mg/dL
[2017-04-12] MEDS ORDERED: PARAB/CET ALC/STRYL ALC/PG/SLS 473 ML BOTTLE TOP PRN (09:00)
[2017-04-12] MEDS ORDERED: predniSONE 20 MG TABLET PO SCH (09:00)
[2017-04-12] MEDS ORDERED: FLUCONAZOLE 100 MG TABLET PO SCH (09:00)
[2017-04-12] MEDS ORDERED: SODIUM BICARBONATE 650 MG TABLET PO SCH (09:00)
[2017-04-12] MEDS ORDERED: ASPIRIN CHEW 81 MG TABLET PO SCH (14:00)
[2017-04-12 14:21] VITALS: BP 95/57
[2017-04-12] MEDS: ZINC OXIDE TOP SCH ×2 (14:27→14:28)
[2017-04-12] MEDS: MENTHOL TOP SCH ×2 (14:27→14:28)
--- NOTE | 2017-04-13 05:30 | CONSULTATION NOTE ---
DATE OF CONSULTATION: 04/12/2017 00:00:00 REQUESTING PROVIDER: DESIRE Cotton PRIMARY PROVIDER: Dr. Vijay Renteria Thank you, Amy Urrutia, for asking the palliative care consult service to be involved in the care of your patient. I am asked to provide evaluation and support regarding goals of care. The patient d oes have intermittent confusion and has been somewhat irritable, concern is over decision making [facility]. History obtained from medical records. EXAM LIMITATIONS: The patient does present with short-term memory deficits. She is oriented to self, but disoriented as far as time and sequence of events. BRIEF HISTORY OF PRESENT ILLNESS: The patient was admitted with chronic kidney disease who did poorly at home after a hospitalization from 04/06/2017 to 04/09/2017 for acute on chronic kidney failure an d anemia. She has continued to have anorexia, increased weakness, escalating pruritus, and increased incontinence. Her underlying health status appears to be fairly poor, as far as multiple comorbiditie s. She was recently hospitalized back in [place] for COPD exacerbation, anemia requiring transfusion and acute versus chronic kidney disease at that point in time as well, and on discharge from her [facility], she was admitted to a correction. In reviewing the series of events that led her here, her b lucaser who is 81 years old himself, last saw her about 4-1/2 years ago, she had [facility]. Though there is some question about her safety and need for support and he had perceived that h er needs were such that she just needed some oversight. The brother and his were quite overwhelm ed by her significant care needs, her intermittent fluctuating cognitive status, the fact that she wa s still quite ill and her incontinence of both urine and stool. In reviewing the long-term plans and goals of the brother, he perceives that he is not going to be able to meet her needs here, that she d oes have a son who is willing to take care of her back in her own apartment if they are able to get h er transferred back there. He had made arrangements to be the DPOA with arranging for the documents r ecently through the bank, he wants to turn this back over to the son and does not want to further hav e responsibility or guide her medical care. He does recognize, though, she is unable to do this indep endently and will need ongoing support for now. In meeting her and setting up rapport, she had just put her cochlear implant in. We were able to have a conversation and at best we could within the limitations of her cognitive status, were able to try and discern some of her goals of care. PAST MEDICAL HISTORY: Includes history of falls, COPD, diarrhea, pruritus, ex-smoker, cholecystectomy , broken foot. It is unclear except for what is documented in the records her underlying healthcare lux la. SYMPTOM BURDEN: The patient does complain of severe right hip pain, lower extremity discomfort with h er swollen legs, and reports increasing fatigue and tiredness. Reports her appetite depends on the fo od that is offered. She reports intermittent shortness of breath, does admit to depression and percei ves her quality of life currently is quite poor. MEDICATION ALLERGIES: LISTED : 1. AMOXICILLIN. 2. CODEINE. 3. ERYTHROMYCIN. 4. LORATADINE. 5. POTASSIUM CLAVULANATE. 6. PROPOXYPHENE. 7. SULFA. 8. TETRACYCLINE. CURRENT MEDICATION LIST: Includes: 1. Acetaminophen 500 mg q.4h. p.r.n. pain. 2. Aspirin 81 mg daily. 3. Calmoseptine ointment, 1 application t.i.d. 4. Calcium acetate 667 mg p.o. t.i.d. 5. Diphenhydramine 25 mg q.12h. p.r.n. itching. 6. fluconazole 100 mg daily. 7. Xopenex 1.25 mg inhalation q.4h. p.r.n. wheezing. 8. Levothyroxine 75 mcg daily. 9. Metoprolol 25 mg b.i.d. 10. Cavilon oil, 1 application topically b.i.d. 11. Multi-ingredient lotion. 12. Cetaphil 473 mL, topical p.r.n. 13. Nystatin 1 application topically b.i.d. 14. Pantoprazole 40 mg daily. 15. Prednisone 20 mg daily. 16. Sodium bicarbonate 650 mg daily. CODE STATUS: THE PATIENT IS A DO NOT ATTEMPT RESUSCITATION. THE BROTHER, CAM JULIEN, IS REPORTEDLY THE DPOA. I HAVE NOT CONFIRMED THAT AND SEEN THE PAPERWORK, THOUGH HE REPORTS HE DID THIS RECENTLY. HIS PHONE NUMBER IS [phone]. PLEASE SEE PALLIATIVE CARE DISCUSSION. WE DID COMPLETE A POLST. BRIEF SOCIAL HISTORY: This is a somewhat vague and unclear. Obviously, the brother who is 81 and his , 77, have been very overwhelmed by taking on this sister. It has caused a lot of marital distres s between the two of them. The patient has minimal financial resources, is Mandae[employer] by background. Marisol starkey does have a son back in [place] as well as grandchildren. MARITAL STATUS: The patient has been twice and per her report. USE OF ALCOHOL/TOBACCO: History of smoking. FAMILY HISTORY: The patient reports all her family lived into their late 90s. PERFORMANCE STATUS: It does appear the patient has had some falls. Social work is working on getting a SNF placement for strengthening and progressive ambulation at [facility]. The patient does report she is dependent currently for all ADLs. REVIEW OF SYSTEMS: This is somewhat limited by the patient's ability to participate. ENT: She does have a cochlear implant. She was able to hear. She says she reads lips. Poor dentition. CARDIOVASCULAR: Denies chest pain. RESPIRATORY: Some shortness of breath. GASTROINTESTINAL: She reports some diarrhea. Appetite as reported above. GENITOURINARY: She is incontinent of urine, has had some postvoid residuals with urinary retention. MUSCULOSKELETAL: Reports right hip pain. Reports she gets relief with hot showers. INTEGUMENTARY: She has had just excruciating pruritus, itches all the time, does have some skin damag e related to this. NEUROLOGIC: The patient is aware it is March. She could not recall where she came from. She could not recall her brother's full name. 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 Please see palliative care discussion. PSYCHIATRIC: Admits to some depression. ENDOCRINE: History of hypothyroidism. HEMATOLOGIC/IMMUNOLOGIC: Her anemia has been identified as anemia of chronic disease and now has need ed yet another 2 units of blood. PHYSICAL EXAMINATION GENERAL APPEARANCE: She has been recently in the shower. She appears clean. EYES: With periorbital edema. ENT: Poor dentition. Mucous membranes moist. NECK: Trachea midline. No lymphadenopathy. No JVD. RESPIRATORY: Her breath sounds are diminished throughout. CARDIOVASCULAR: Her heart was regular rhythm at 72. She does have lower extremity taut edema up to ab out mid calf. ABDOMEN: Soft. Bowel tones normal. SKIN: She has lots of lesions where she has dug in with her nails on her forearms. No signs or sympto ms of infection at this point in time. EXTREMITIES: She is able to move her extremities on command. I did not have her walk. CURRENT LABS: Include her most recent sodium is 140, potassium 4.1, chloride 114, carbon dioxide 17, BUN 69, creatinine 3.1, GFR 14, glucose 81, calcium 7.4. Abnormals on 04/11/2017 were AST of 70, ALT of 68, total protein 6.1, and albumin 2.5. Her most recent CBC on 04/11/2017 was WBC 4.4, RBCs 2.68, hemoglobin 8.3, hematocrit 25.3. PALLIATIVE CARE DISCUSSION: WHO IS PRESENT: Myself, the patient, and Stacy Orozco, nurse practitioner. We did discuss that the plan was for her to go to [facility], which is a correction for her today. Marisol starkey does express her wishes is not to be in a hospital. She does want to be in a place that will take c are of her. She recognizes that going to a correction is important because she is weak. When asked about what is most important to her, she wants to be close to her brother Cam and close to her son. S he perceived her son was here. When asked where she was from, [place], [place]. She reports she has no fears or worries, but she wants to be some place where she gets checked on at night, she does not wan t to be lying on the floor. She does have some insight in talking about how things were going at wher e she had been. She had some memory of being in a correction and that was good because she could de pend on them. She felt bad about having to put her brother out and calling for him to come get her. W simon asked about are you afraid of dying, she actually said, "sometimes I'm scared of living, you get to have a better life in regards to dying." When asking if her earnest brought her comfort, she reports she was Mandaeism. When asked if that was comforting or not, she says she does have to believe what s he is taught and does find it that way. The patient really was not able to give me any baseline under standing of her illness. She does recognize she is ill. She is quite frustrated in being dependent. S he understands she cannot take care of herself, did give me permission to go talk to her brother kyle sylvie ttle bit about the plans. I talked to the brother Cam. He is quite overwhelmed by this. His goal for her is to get her strong e nough to travel, is planning to take her back to [place] where the son will take responsibility. He does not really know if she is clear or not. She fluctuates in her ability to communicate with him. N ot a whole lot of conversation or understanding happens between the two of them either. He does recog nize that she is seriously ill. We have discussed if something were to happen to her as far as suppor t in this context. He would choose as far as choices in the POLST, A DO NOT ATTEMPT RESUSCITATION. In weighing benefits and burdens of the next level of the conversation, comfort measures versus limited interventions versus full, did choose limited intervention, recognizing that would mean no ventilati on. Regarding other decisions DETERMINE USE OR LIMITATION OF ANTIBIOTICS AND NO TUBE FEEDINGS. The br other will sign the POLST at [facility]. The brother is feeling somewhat overwhelmed as far as all the d ecisions that need to be made, but does recognize the patient is unable to speak for herself, though she is quite opinionated at times she cannot follow complicated conversation. When I came back and sp amanda with her, it is unclear if she understood the plan of care. She does understand she is going to [facility]. She does understand the plan would be to return her to her son. As far as being able to take care of her, she does understand she needs help. It is unclear if she understands the seriou sness of her condition or the fact that she may continue to decline. IMPRESSION: This is a 81-year-old woman with fairly severe health problems with very poor insight and now with poor social support. She does not present with decision making capacity as far as being abl e to weigh benefits and burdens without understanding of her current condition for determining goals of care. She remains quite fragile and presents with failure to thrive. RECOMMENDATIONS/COUNSELING DONE: 1. Advanced care planning. Given the patient's seriousness of her illness, her dislike of hospitals, her goals of wanting to be some place where she feels safe, transitioning to the correction does ap pear to be something that is congruent with her values. In discussing with her brother as far as over all goals of care, looking at ways to support her quality of life, recognizing quantity of life is li mited, we did complete the POLST. In looking at the patient's characteristics on the [place] index, [facility] looks at correction residence with outcome with 6-month mortality, out of 100 correction resi dents with similar answers, 79 will and 21 will survive over the next 6 months. As noted, this ca lculator cannot predict the future of one individual but gives an estimate of how many people with si milar risk factors will live and but they cannot identify who will live and . This adds some c larity to the seriousness of her illness and concern for her failure to thrive. 2. Pruritus. The patient is newly trying Calmoseptine. She does not really present with a rash. The o ther thing that has been shown to work sometimes though recognize it comes with risks, have had some success with uremic pruritus with doxepin starting at 10 mg and titrating up to 25-30 mg as an option as well. She may also benefit just from some prednisone to address her acute current status. She is currently on Benadryl 25 mg b.i.d. Will continue to have to weigh the benefits and burdens moving fo rward regarding managing this sometimes difficult symptom. 3. Generalized weakness. The patient will benefit from supervised and hands on rehabilitation care. T he patient's goal is to be more independent as far as toileting and self-care, though does appear to recognize in the skilled nursing, she is going to need further assistance, which does cause her some level of distress. She has just enough insight to recognize she is dependent and is somewhat frustrated wit h this current development. TIME SPENT: 90 minutes with greater than 50% of this done in counseling and coordination of care, adilene leiva with IVÁN Julien for POLST, goals of care, trying to establish rapport and evaluate the patient's decision making capacity. I also provided anticipatory guidance and followup with johann kelly and hospitalist clinical social worker. Will send my note on to [facility] for support, as well. JOB #: [id number] EXT JOB #:[id number]
--- NOTE | 2017-04-13 12:08 | DISCHARGE SUMMARY ---
DATE OF ADMISSION: 04/11/2017 DATE OF DISCHARGE: 04/12/2017 PRIMARY CARE PROVIDER: Vijay Renteria MD DISCHARGE DIAGNOSES 1. Urinary tract infection. 2. Acute on chronic kidney disease due to NSAID (and possible reduced PO fluid intake) SECONDARY DIAGNOSES 1. Chronic kidney disease, IV. 2. Anemia of chronic disease due to CKD (per nephrology consultation in [place] ,) status post 2 units of packed red cells April 07, on a prior admission, with a hemoglobin and hematocrit of 8.3 and 25.3 on April 11. 3. Atrial fibrillation, on metoprolol. 4. History of nonsustained ventricular tachycardia 6-9 beats with a normal ejection fraction on echo. 5. Ex-smoker with chronic obstructive pulmonary disease. 6. History of postvoid residual. 7. Uremic pruritus. 8. Perianal and perineal excoriation due to chronic urinary dribbling 9. Possible early dementia 10 Hard of hearing with cochlear implant IMAGING STUDIES: None. DIAGNOSTIC STUDIES: A UA done April 11 with positive protein, moderate occult blood, positive nitrite, 11-25 white cells, a few renal tubular cells, moderate squamous cells, many bacteria. 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 Admission CBC: White count 4.4, hemoglobin 8.3, hematocrit 25.3, platelets 146,000. Sodium 140, potassium 4.1, chloride 114 , bicarbonate 17, BUN 69, creatinine 3.1. On presentation to the emergency room , she had been 73 and 3.2, and just 48 hours previously, when she was discharged , her creatinine was 2.7. CONSULTATIONS: None, other than case management. BRIEF HOSPITAL COURSE BY PROBLEMS: Please see the very detailed history and physical from April [address] Lilia King, as well as my history and physical on April 11 and discharge summary from April 10. Briefly, the patient is a 81- year-old female whose family (brother) moved her from a skilled facility in [place] on March 18 to [facility]. She has been living with her brother and the [id number] has been primarily the one taking care of her. She has the medical problems as listed above and has very poor insight into her problems. She was just admitted for acute on chronic kidney disease several days ago, as well as anemia for which she received 2 units of packed red cells. (In [place] , she presented to ED twice with weakness with a hemoglobin in the mid 6 range, refused admission and was sent home after transfusion in the ED there. She also had been admitted for a COPD exacerbation there ([facility]; records left for her chart here) where she had a nephrologyu consultation/) On April 09, her Cr had improved to 2.7 which is her baseline compared with 11/2016, her hemoglobin was over 8, and she was evaluated by Physical Therapy who found her to have no skilled needs. She was discharged home as her family was arranging to bring her back to [place] in the very near future. The family brought her back to the emergency room approximately 48 hours later saying she was too weak to get up and needed skilled facility placement, which they had again declined the prior week because they wanted to bring her back to [place] (where she is from and where the rest of the family is, despite subjective report that her grandchildren are "robbing" her. Her Creatinine was back up to 3.2 and the family notes she was insisting on taking NSAIDS for chronic pain, and refusing water, wanting to drink primarily soda. They also indicated she was getting weaker. 1. UTI: On presentation, a UA was positive. Of note, this had been normal on a prior admission. She was afebrile, nontoxic appearing, no associated nausea or vomiting and transferring with light assist. It is at this point growing 100, 000 gram negative rods, which are most likely to be E coli. She received ceftriaxone x2 doses empirically and will be discharged on Keflex. She will need followup on the sensitivities, but she has not been on antibiotics and this should likely be a sensitive organism. She does have postvoid residual, which was also noted in [place]. She has not been getting any treatment for this previously and her skin suggests long-term chronic dribbling, as it is very excoriated. She will need intermittent straight cath as she has postvoids greater than 400. Recommend toileting her frequently, every 2-3 hours, when awake. Since she was still eligible for skilled facility placement she was discharged to [facility]. (She received 1Liter NS in ED adn an additonal ~ 250cc once on the medsurg floor, but hydration was discontinued until Cr was rechecked. Her Cr on 04/12 was 3.1 and off NSAids should drift back down to her baseline 2.7-2.8. 2. Atrial fibrillation. Her rate is controlled on metoprolol. She is not on anticoagulation as her creatinine is too low for most of the new oral anticoagulations, and she would not likely be safe with Coumadin. 3. Perianal and perineal excoriations from chronic dribbling. She should have a barrier cream such as Cavilon cream, placed p.r.n. Encourage q2-3 hr voiding to avoid incontinence 4. Groin and under breast intertrigo and yeast. She should have nystatin powder to those areas twice daily. 5. History of nonsustained ventricular tachycardia. She is on metoprolol and an echocardiogram done both in [place] and here shows a normal EF. 6. Anemia; Her baseline Creatine is ~ 2.7-2.8., has received erythropoietin in [place]. She received 2 units on the very recent admission and has an adequate hemoglobin and hematocrit currently. She has no evident GI blood loss or other source of bleeding 7. Chronic kidney disease IV At this time, after meeting with Brook Feliciano, the patient has very poor insight into her disease . Her brother, who has durable power of commercial attorney, made the decision that she is DNR/DNI WITH LIMITED INTERVENTIONS. Dr. Renteria is also aware that their plan is to take her back to [place] and that there are no plans for aggressive intervention. For her early renal osteodystrophy, she is started on low-dose PhosLo or calcium acetate with meals. Tate recheck CA and PHOS in ~ 1 week. Also, she is started on bicarbonate again for her metabolic acidosis, which she evidently was already on in [place]. 8. Chronic obstructive pulmonary disease. She can have p.r.n. Xopenex nebs. Recommend not using albuterol as this can push her heart rate. 9. Hypothyroidism. She is on levothyroxine at home with recent TSH in a normal range. 10. Uremic pruritus. The patient has been doing extensive itching due to uremia. She was started on a water based emollient . She was given a trial dose of 20 mg Prednisone on 04/12 which was also the day of discharge to [facility] so we did not have a chance to see if this helped symptomatically. Could consider low dose (10 mg ) daily but this was not included on the discharge orderes. 11. Chronic pain. What sounds like basically arthritic pains with osteoarthritis. The patient was taking many NSAIDs at home. She is on p.r.n. Tylenol there. She was taking Ultram at home, which is contraindicated with a GFR. Could consider a very low and conservative dose of Ultram, especially if she is requesting at some point comfort care only. She has no insulin orders. DISCHARGE MEDICATIONS 1. Keflex 250 mg 3 times daily x5 more days. 2. Diflucan 100 mg once daily x3 more days. 3. Aspirin 81 mg once daily. 4. Calmoseptine ointment for pruritic skin areas. 5. Levothyroxine 150 mcg once daily. 6. Metoprolol 25 mg twice daily. 7. No NSAIDs. 8. Calcium acetate 667 p.o. t.i.d. with meals. 9. Prilosec 20 mg once daily. 10. Nystatin powder to groin folds b.i.d. 11. Benadryl 25 mg q.12h. for itching. Hold if confused. 12. Sodium bicarbonate 650 mg once daily. 13. Lipitor 10 mg once daily. 14. Vitamin D 400 units once daily. 15. Tylenol 650 mg every 6 hours as needed for pain. 16. Xopenex nebs q.6h. p.r.n. wheeze. 17. Cavilon barrier cream to the perineum and perianal area. TREATMENT 1. She will need followup with urine culture results here at [facility]. 2. Brook Feliciano did do a palliative care consult initial evaluation. If the patient's family wants followup, this would be done through referral through Dr. Renteria. 3. She will need intermittent straight catheterization if postvoid residuals greater than 400 mL. She is to void every 2-3 hours when awake, that is every 2- 3 hour toileting. 4. Consider followup with Nephrology if she wants to stay in [place], but it sounds as though she is going to have limited interventions and nonaggressive care. 5. Barrier cream to perianal and perineal excoriations. 6. Calmoseptine cream to pruritic skin, and out of bed to chair t.i.d. for meals as no oxygen required. 7. Followup. Consider recheck of phosphorus and calcium in approximately 1 week , as well as a bicarbonate. Reevaluate heart rate control on her metoprolol, which has been reasonable with a max rate of about 100. PHYSICAL EXAMINATION ON DISCHARGE VITAL SIGNS: She is afebrile 36.9, heart rate 93-104, blood pressure 130/70 and 135/68 but later documented pressure of 95/57, which was not reported. She is 99 % on room air. GENERAL: The patient was sitting up in the chair very cantankerous and demanding when I saw her, saying "scratch my back" and "tell the nurses not to move me so far." She was not cooperative with care at that time. LUNGS: Clear to auscultation. She has unlabored respirations. HEART: Irregularly irregular S1, S2 with a rate of approximately 100. SKIN: She has multiple excoriated areas on her back from scratching. Chest was notable for scratch cole on much of her torso, as well as her upper arms. ABDOMEN: Soft, rounded, distended, nontender. GROIN: She has excoriations and ulcerations in her perineum and perianal area similar to when she was just discharged. Groin folds w/ light pink erythema and intertrigio. EXTREMITIES: Notable for being large but with not greater than 1+ edema and multiple pruritic scratch areas. JOB #: [id number] EXT JOB #:[id number] TARIK
== END 2017-04-12 16:05 | DRG 690 ==
LOC: ED 12:21 → MS 15:40
PROVIDERS: ADMIT Nurse Practitioner; ATTEND Nurse Practitioner
DX: E86.0 Dehydration (principal); N19 Unspecified kidney failure; N30.00 Acute cystitis without hematuria; I95.9 Hypotension, unspecified; M25.551 Pain in right hip; I50.9 Heart failure, unspecified; J45.909 Unspecified asthma, uncomplicated; N39.0 Urinary tract infection, site not specified; N17.9 Acute kidney failure, unspecified; N18.4 Chronic kidney disease, stage 4 (severe); I47.2 Ventricular tachycardia; I12.9 Hypertensive chronic kidney disease with stage 1 through stage 4 chronic kidney disease, or unspecified chronic kidney disease; T39.395A Adverse effect of other nonsteroidal anti-inflammatory drugs [NSAID], initial encounter; D63.1 Anemia in chronic kidney disease; I48.91 Unspecified atrial fibrillation; J44.9 Chronic obstructive pulmonary disease, unspecified; Z87.891 Personal history of nicotine dependence; L29.8 Other pruritus; S30.814A Abrasion of vagina and vulva, initial encounter; X58.XXXA Exposure to other specified factors, initial encounter; N39.43 Post-void dribbling; G89.29 Other chronic pain; Z96.21 Cochlear implant status; F03.90 Unspecified dementia, unspecified severity, without behavioral disturbance, psychotic disturbance, mood disturbance, and anxiety; B37.2 Candidiasis of skin and nail; L30.4 Erythema intertrigo; Z66 Do not resuscitate; N25.0 Renal osteodystrophy; E03.9 Hypothyroidism, unspecified; M19.90 Unspecified osteoarthritis, unspecified site; H91.90 Unspecified hearing loss, unspecified ear; R33.9 Retention of urine, unspecified; Z51.5 Encounter for palliative care; Z91.81 History of falling
CPT/HCPCS: 36415; 51701; 80048; 80053; 81001; 81003; 83690; 83735; 85025; 87077; 87086; 94640; 96361; 96374; 99223; 99283; 99284; 99285

== ENCOUNTER 2017-04-19 14:59 | Outpatient (CLI) | payer MEDICARE, OTHER ==
[2017-04-19 13:02] LABS: BASOPHILS # (AUTO) 0.1 10^3/uL (0.0-0.1); BASOPHILS % (AUTO) 1.1 %; EOSINOPHILS # (AUTO) 0.6 10^3/uL (0.0-0.7); EOSINOPHILS % (AUTO) 8.4 %; HCT - HEMATOCRIT 27.6 % (37.0-47.0); HGB - HEMOGLOBIN 9.1 g/dL (12.0-16.0); LYMPHOCYTES # (AUTO) 2.1 10^3/uL (1.5-3.5); LYMPHOCYTES % (AUTO) 29.9 %; MEAN CORPUSCULAR HEMOGLOBIN 31.5 pg (27.0-31.0); MEAN CORPUSCULAR HGB CONC 32.9 g/dL (32.0-36.0); MEAN CORPUSCULAR VOLUME 95.6 fL (81.0-99.0); MEAN PLATELET VOLUME 8.6 fL (7.9-10.8); MONOCYTES # (AUTO) 0.6 10^3/uL (0.0-1.0); MONOCYTES % (AUTO) 8.2 %; NEUTROPHILS # (AUTO) 3.7 10^3/uL (1.5-6.6); NEUTROPHILS % (AUTO) 52.4 %; RED BLOOD COUNT 2.89 10^6/uL (4.20-5.40); RED CELL DISTRIBUTION WIDTH 20.3 % (12.0-15.0)
[2017-04-19 13:53] LABS: CALCIUM 8.9 mg/dL (8.5-10.3); CREATININE 3.5 mg/dL (0.4-1.0)
== END 2017-04-19 15:00 | disposition home or self-care (01) ==
LOC: LAB.R 14:59
DX: N18.9 Chronic kidney disease, unspecified (principal)
CPT/HCPCS: 80048; 85025

== ENCOUNTER 2017-04-19 17:35 | Outpatient (CLI) | payer MEDICARE | END 2017-04-19 17:36 | disposition critical access hospital (66) | LOC: EMS 17:35 | PROVIDERS: ATTEND Surgery | DX: R79.9 Abnormal finding of blood chemistry, unspecified (principal) | CPT/HCPCS: A0425; A0429 ==

== ENCOUNTER 2017-04-19 17:45 | Inpatient (IN) | payer MEDICARE ==
[2017-04-19 18:25] LABS: BASOPHILS % (AUTO) 1.5 %; EOSINOPHILS % (AUTO) 10.2 %; HCT - HEMATOCRIT 27.5 % (37.0-47.0); HGB - HEMOGLOBIN 8.8 g/dL (12.0-16.0); LYMPHOCYTES % (AUTO) 21.4 %; MEAN CORPUSCULAR HEMOGLOBIN 31.2 pg (27.0-31.0); MEAN CORPUSCULAR HGB CONC 32.1 g/dL (32.0-36.0); MEAN CORPUSCULAR VOLUME 97.2 fL (81.0-99.0); MEAN PLATELET VOLUME 7.9 fL (7.9-10.8); MONOCYTES % (AUTO) 7.9 %; RED BLOOD COUNT 2.83 10^6/uL (4.20-5.40); RED CELL DISTRIBUTION WIDTH 21.1 % (12.0-15.0); UNCORRECTED WHITE BLOOD COUNT 6.1 x10^3/uL; WHITE BLOOD COUNT 6.1 x10^3/uL (4.8-10.8)
[2017-04-19 18:38] LABS: ALBUMIN/GLOBULIN RATIO 0.6 (1.0-2.2); BILIRUBIN,TOTAL 0.7 mg/dL (0.2-1.0); CALCIUM 8.7 mg/dL (8.5-10.3); CREATININE 3.6 mg/dL (0.4-1.0); POTASSIUM 6.8 mmol/L (3.5-5.0); TOTAL PROTEIN 6.5 g/dL (6.7-8.2)
[2017-04-19] MEDS ORDERED: SODIUM CHLORIDE 0.9% 1,000 ML IV ONE ×3 (19:01→19:11)
[2017-04-19] MEDS ORDERED: DEXTROSE 50% ABBOJECT 25 GM/50 ML SYRINGE IVP STA (19:02)
[2017-04-19] MEDS ORDERED: INSULIN REGULAR HUMAN 100 UNIT/1 ML 10 ML MDV SUBQ STA (19:02)
[2017-04-19] MEDS ORDERED: INSULIN REGULAR HUMAN 100 UNIT/1 ML 10 ML MDV ONE (19:11)
[2017-04-19] MEDS ORDERED: DEXTROSE 50% ABBOJECT 25 GM/50 ML SYRINGE ONE (19:11)
[2017-04-19 19:27] LABS: BAND NEUTROPHILS % (MANUAL) 3 %; EOSINOPHILS % (MANUAL) 11 %; LYMPHOCYTES % (MANUAL) 15 %; NEUTROPHILS % (MANUAL) 62 %; TOTAL CELLS COUNTED 100
[2017-04-19 19:28] LABS: NP AUTO DIFFERENTIAL? YES; NP MAN DIFFERENTIAL? NO; PLATELET ESTIMATE, MANUAL NORMAL (130-450,000) (NORMAL); PLATELET MORPHOLOGY NORMAL APPEARANCE (NORMAL)
[2017-04-19] MEDS ORDERED: diltiaZEM INJ 5 MG/ML VIAL IVP STA (20:14)
--- NOTE | 2017-04-19 20:14 | ED Physician Documentation ---
History of Present Illness - Stated complaint Stated Complaint: HIGH POTASSIUM - Chief complaint Chief Complaint: General - History obtained from History obtained from: Patient, EMS - History of Present Illness Timing: Today Pain level max: 0 Pain level now: 0 - Additonal information Additional information: noted elevated potassium on blood draw today.. Pt unable to give any history. Review of Systems Unable to obtain: Confused, Uncooperative PD PAST MEDICAL HISTORY - Past Medical History Past Medical History: Yes Cardiovascular: Congestive heart failure, Valve disorder Respiratory: Asthma HEENT: Macular degeneration, Chronic hearing loss Musculoskeletal: Osteoarthritis Derm: Other - Past Surgical History General: Cholecystectomy, Hiatal hernia repair, Colonoscopy /SALES RECRUITER: Other HEENT: Cochlear implant - Present Medications Home Medications: Ambulatory Orders Medication Instructions Recorded Confirmed Fluticasone [Flonase] 1 spray LOTTIE BID 04/07/17 04/07/17 Ipratropium/Albuterol [Duoneb] 3 ml INH QID PRN 04/07/17 04/07/17 Levothyroxine [Synthroid] 150 mcg PO DAILY 04/07/17 04/07/17 Omeprazole 20 mg PO DAILY 04/07/17 04/07/17 Acetaminophen [Tylenol] 650 mg PO Q4HR PRN #0 tablet 04/09/17 Calcium Acetate [Phoslo] 667 mg PO TIDWM #90 capsule 04/09/17 Levothyroxine [Synthroid] 150 mcg PO QDAC tablet 04/09/17 Metoprolol Tartrate 37.5 mg PO BID #60 tablet 04/09/17 Nystatin [Nystop] 1 applic TOP BID #1 bottle 04/09/17 - Allergies Allergies/Adverse Reactions: Allergies Allergy/AdvReac Type Severity Reaction Status Date / Time amoxicillin trihydrate * Allergy Unknown Verified 04/06/17 19:15 [From Augmentin] codeine Allergy Unknown Verified 04/06/17 19:15 erythromycin base Allergy Unknown Verified 04/06/17 19:15 loratadine [From Claritin] Allergy Unknown Verified 04/06/17 19:15 potassium clavulanate * Allergy Unknown Verified 04/06/17 19:15 [From Augmentin] propoxyphene HCl * Allergy Unknown Verified 04/06/17 19:15 [From Darvon] Sulfa (Sulfonamide Allergy Unknown Verified 04/06/17 19:15 Antibiotics) tetracycline Allergy Unknown Verified 04/06/17 19:15 - Social History Does the pt smoke?: No Smoking Status: Never smoker Does the pt drink ETOH?: No Does the pt have substance abuse?: No - Immunizations Immunizations are current?: Yes - POLST Patient has POLST: No PD ED PE NORMAL - Vitals Vital signs reviewed: Yes - General General: No acute distress, Well developed/nourished, Other (Alert, not oriented to person, place or time) - HEENT HEENT: PERRL, Moist mucous membranes - Neck Neck: Supple, no meningeal sign - Cardiac Cardiac: Other (Tachycardic, irregular) - Respiratory Respiratory: No respiratory distress, Clear bilaterally - Abdomen Abdomen: Soft, Non tender, Non distended - Back Back: No spinal TTP - Derm Derm: Warm and dry - Extremities Extremities: No deformity - Neuro Neuro: Other (Alert) Results - Vitals Vitals: Vital Signs - 24 hr 04/19/17 04/19/17 17:45 20:00 Temperature 36.6 C 36.4 C L Heart Rate 116 H Heart Rate [ 132 H Brachial] Respiratory 16 16 Rate Blood Pressure 107/72 Blood Pressure 74/46 L [Right Brachial artery] O2 Saturation 98 98 Oxygen O2 Source Room air - EKG (time done) 1932 Rate: Rate (enter#) (124) Rhythm: Atrial fibrillation (with RVR) [place]: Normal Ischemia: Non specific changes - Labs Labs: Laboratory Tests 04/19/17 04/19/17 04/19/17 18:10 18:10 19:35 WBC 6.1 RBC 2.83 L Hgb 8.8 L Hct 27.5 L MCV 97.2 MCH 31.2 H MCHC 32.1 RDW 21.1 H Plt Count 238 MPV 7.9 Neut # Not Reportable Lymph # Not Reportable [place] # Not Reportable Eos # Not Reportable Baso # Not Reportable Absolute Nucleated RBC Not Reportable Total Counted 100 Band Neuts % (Manual) 3 Reactive Lymphs % (Man) 1 Neutrophils # (Manual) 4.0 Lymphocytes # (Manual) 1.0 L Monocytes # (Manual) 0.5 Eosinophils # (Manual) 0.7 Nucleated RBCs Not Reportable Differential Comment MANUAL DIFFERENTIAL Platelet Estimate NORMAL (130-450,000) Platelet Morphology NORMAL APPEARANCE RBC Morph Micro Appear 2+ POIKILOCYTOSIS Sodium 142 Potassium 6.8 H* 6.7 H* Chloride 112 H Carbon Dioxide 23 Anion Gap 7.0 BUN 71 H Creatinine 3.6 H Estimated GFR (MDRD) 12 L Glucose 79 Calcium 8.7 Total Bilirubin 0.7 AST 51 H ALT 78 H Alkaline Phosphatase 101 Total Protein 6.5 L Albumin 2.5 L Globulin 4.0 Albumin/Globulin Ratio 0.6 L Lipase 29 PD MEDICAL DECISION MAKING - ED course Complexity details: reviewed old records, reviewed results, re-evaluated patient , considered differential, d/w oncology consultant ED course: Patient is a 81-year-old female who presents to the emergency department with hyperkalemia. No acute changes on EKG. Also found to be in atrial fibrillation with rapid ventricular response. She was given diltiazem here. Heart rate did decrease. Also given IV fluids. She was also given insulin, glucose for her hyperkalemia, did not change much on repeat lab. Has chronic renal failure that is unchanged. As she did not respond to initial treatment, will place her in observation. Discussed the case with Dr. Hurt, hospitalist, who accepts. This document was made in part using voice recognition software. While efforts are made to proofread this document, sound alike and grammatical errors may occur. Departure - Departure Disposition: ED Place in Observation Clinical Impression: Hyperkalemia, Atrial fibrillation with RVR Chronic renal failure Qualifiers: Chronic kidney disease stage: unspecified stage Qualified Code(s): N18.9 - Chronic kidney disease, unspecified Discharge Date/Time: 04/19/17 22:06
[2017-04-19] MEDS ORDERED: diltiaZEM INJ 5 MG/ML VIAL ONE (20:17)
[2017-04-19] MEDS ORDERED: IPRATROPIUM/ALBUTEROL 3 ML NEB INH PRN (20:55)
[2017-04-19] MEDS ORDERED: ONDANSETRON 4 MG/2 ML VIAL IVP PRN (20:57)
[2017-04-19] MEDS ORDERED: PROCHLORPERAZINE 10 MG/2 ML VIAL IVP PRN (20:57)
[2017-04-19] MEDS ORDERED: SODIUM CHLORIDE FLUSH 0.9% 10 ML SYRINGE IVP PRN (20:57)
[2017-04-19] MEDS ORDERED: SODIUM POLYSTYRENE SULFONATE 15 GM/60 ML BOTTLE PO SCH (20:57)
[2017-04-19] MEDS ORDERED: CALCIUM GLUCONATE 2,000 MG in SODIUM CHLORIDE 0.9% 100ML 100 ML IV SCH (20:57)
[2017-04-19] MEDS ORDERED: oxyCODONE 5 MG TABLET PO PRN (20:57)
[2017-04-19] MEDS ORDERED: ALBUTEROL NEB 2.5 MG/3 ML INH STA (20:57)
[2017-04-19] MEDS ORDERED: SODIUM BICARBONATE 100 MEQ in DEXTROSE 5% 1,000 ML IV SCH (21:00)
[2017-04-19] MEDS ORDERED: ALBUTEROL NEB 2.5 MG/3 ML INH ONE ×2 (21:16→21:20)
[2017-04-19] MEDS ORDERED: ALBUTEROL NEB 2.5 MG/3 ML INH SCH (21:52)
--- NOTE | 2017-04-19 22:11 | HISTORY & PHYSICAL EXAMINATION ---
Chief Complaint - Chief Complaint Chief Complaint: high potassium History of Present Illness - Admitted From Admitted From:: Emergency department - History Obtained From Records Reviewed: yes History obtained from: patient and medical records Exam Limitations: Patient was uncooperative in providing history - History of Present Illness HPI Comment/Other: Patient is a 81-year-old female with a past medical history significant for chronic kidney disease stage IV, anemia of chronic disease related to chronic kidney disease, atrial fibrillation on any anticoagulation, hypothyroidism, COPD and hearing loss with cochlear implant who presented to the emergency department from [facility] to an elevated potassium on routine lab work. The patient was uncooperative in providing any history. When attempt was made to speak with the patient she ignored my questioning and instead asked me to remove the blankets as she stated she had to go to the bathroom. Multiple attempts were made to speak with the patient but she was not willing to provide history. It appears from previous records that patient has acted in the same manner before. The patient was admitted to [facility] twice in the last 2 weeks initially she was admitted for uremic pruritus and then again for a UTI with acute on chronic kidney injury. After her most recent admission on 04/11/2017 the patient was discharged to [facility] for jail on 04/12/2017. Since then she has been stable at [facility] however today she was sent to the emergency department as routine lab work revealed that she had hyperkalemia with a potassium of 6.8. The patient otherwise was not complaining of anything prior to coming into the hospital. She appeared to be at her baseline on presentation. She was itching at her arms and her genital area. Otherwise is as stated above she was not willing to answer any further questions. Attempt was made in the emergency department to lower the patient's potassium. The patient was given insulin and D50 and potassium was rechecked and found to be 6.7. The patient's creatinine was also elevated at 3.6 from a baseline of about 3.1. The patient did appear to be dehydrated. She otherwise had no signs or symptoms of infection. She was placed in observation for treatment of her hyperkalemia and acute kidney injury. Review of Systems - All Other Systems All Other Systems: reports: Other (Patient was not willing to provide a review of systems.) History - Past Medical History Cardiovascular: reports: Congestive heart failure, Valve disorder Respiratory: reports: Asthma HEENT: reports: Macular degeneration, Chronic hearing loss Musculoskeletal: reports: Osteoarthritis Derm: reports: Other MRSA Hx?: No Other Past Medical History: 1. Chronic kidney disease diagnosed in 11/2016. At that time she had a creatinine of 2.8, a normal renal ultrasound and nephrology workup revealed she had atherosclerotic kidney disease. 2. Anemia of chronic disease secondary to chronic kidney disease. 3. Atrial fibrillation not on anticoagulation. 4. Hypothyroidism. 5. COPD. 6. History of urinary retention. 7. History of tobacco use - Past Surgical History General: reports: Cholecystectomy, Hiatal hernia repair, Colonoscopy /ONLINE COMMUNICATIONS MANAGER: reports: Other HEENT: reports: Cochlear implant - Family & Social History Family History: Mother: (old-age), Father: , Brother: Alive and Well (2 brothers), Family History Comment/Other: one nephew who of opiate overdose in his 40s Living arrangement: jail Living Situation: With caregiver(s) Social History Notes: Up until recently patient was living in [place], where most recently she was transferred to a jail facility until 03-18-2017 when her brother Victor Manuel flew her out to [facility] be closer to him, due to concerns that her grandchildren were robbing her blind. The patient's sister-in- law was having an extremely difficult time eating the patient's demands at home , the patient was complaining of chronic back pain, insisting on ibuprofen despite instructions that this was contraindicated given her chronic kidney disease, also the patient was having chronic itching due to uremic pruritus, she was in the shower in the middle of the night; and due to her hearing impairment, despite a cochlear implant, she is often 10 pain first when she is unable to hear. After 2 admissions to [facility] the family finally decided to have the patient placed at a jail facility in [facility].The patient is an ex-smoker having smoked stopped approximately 25 years ago. Prior to that she smoked 2 packs per day for nearly 30 years. The patient denies any alcohol use. She denies any illicit drug use. The patient has been twice and she is twice. - Substance History Use: Uses substance without health or social issues: NONE Abuse: Recurrent use of substance despite neg consequences: NONE Dependence: Experiences withdrawal or developed tolerances: NONE - POLST Patient has POLST: No POLST Status: DNR Meds/Allgy - Home Medications Home Medications: Ambulatory Orders Medication Instructions Recorded Confirmed Fluticasone [Flonase] 1 spray LOTTIE BID 04/07/17 04/07/17 Ipratropium/Albuterol [Duoneb] 3 ml INH QID PRN 04/07/17 04/07/17 Levothyroxine [Synthroid] 150 mcg PO DAILY 04/07/17 04/07/17 Omeprazole 20 mg PO DAILY 04/07/17 04/07/17 Acetaminophen [Tylenol] 650 mg PO Q4HR PRN #0 tablet 04/09/17 Calcium Acetate [Phoslo] 667 mg PO TIDWM #90 capsule 04/09/17 Levothyroxine [Synthroid] 150 mcg PO QDAC tablet 04/09/17 Metoprolol Tartrate 37.5 mg PO BID #60 tablet 04/09/17 Nystatin [Nystop] 1 applic TOP BID #1 bottle 04/09/17 - Allergies Allergies/Adverse Reactions: Allergies Allergy/AdvReac Type Severity Reaction Status Date / Time amoxicillin trihydrate * Allergy Unknown Verified 04/06/17 19:15 [From Augmentin] codeine Allergy Unknown Verified 04/06/17 19:15 erythromycin base Allergy Unknown Verified 04/06/17 19:15 loratadine [From Claritin] Allergy Unknown Verified 04/06/17 19:15 potassium clavulanate * Allergy Unknown Verified 04/06/17 19:15 [From Augmentin] propoxyphene HCl * Allergy Unknown Verified 04/06/17 19:15 [From Darvon] Sulfa (Sulfonamide Allergy Unknown Verified 04/06/17 19:15 Antibiotics) tetracycline Allergy Unknown Verified 04/06/17 19:15 Exam - Vital Signs Reviewed Vital Signs: Yes Vital Signs: Vital Signs x48h Temp Pulse Resp BP Pulse Ox 04/19/17 21:43 36.8 C 105 H 99 04/19/17 21:30 121 H 20 04/19/17 21:11 36.8 C 120 H 127/69 90 L 04/19/17 17:45 36.6 C 116 H 16 107/72 98 - Physical Exam General Appearance: positive: Alert, Other (Hard of hearing and does not answer any questions) Eyes Bilateral: positive: Normal inspection, PERRL, EOMI, No lid inflammation, Conjunctivae nml, No scleral icterus ENT: positive: ENT inspection nml, Pharynx nml, Dry mucous membranes. negative : Purulent nasal drainage, Pharyngeal erythema, Oral lesions Neck: positive: Nml inspection, Thyroid nml, No JVD, Trachea midline. negative : Thyromegaly, Lymphadenopathy (R), Lymphadenopathy (L) Respiratory: positive: Chest non-tender, No respiratory distress, Breath sounds nml. negative: Wheezes, Rales, Rhonchi Cardiovascular: positive: No murmur, No gallop, Irregularly irregular, Tachycardia Peripheral Pulses: positive: 2+ Abdomen: positive: Non-tender, No organomegaly, Nml bowel sounds, No distention. negative: Guarding, Rebound, Hepatomegaly Back: positive: Other (excoriations all over her back). negative: CVA tenderness (R), CVA tenderness (L) Skin: positive: Dry, Other (Her skin is notable for excoriated lesions on her forearms, shoulders, and back. She also has excoriations on her perineal area with very shallow ulcerations and appearance of tenia.). negative: Cyanosis, Pallor Extremities: positive: Non-tender, Full ROM, Nml appearance, No pedal edema. negative: Joint swelling Neurologic/Psychiatric: positive: CN's nml (2-12), Motor nml, Sensation nml Conclusion/Plan - Problem List (1) Hyperkalemia Conclusion/Plan: Likely secondary to worsening renal failure. Patient is not have acidosis and does not appear to be uremic or have indications for emergent dialysis at this time. Attempt was made in the emergency department to treat hyperkalemia with insulin and D50 however patient's potassium only came down to 6.8. EKG did not show any peaked T waves or other changes of hyperkalemia Plan: Place patient in observation Place patient on telemetry Give Kayexalate, albuterol nebulizer 20 mg, sodium bicarbonate drip, calcium gluconate IV Recheck potassium in the morning (2) Acute on chronic renal failure Conclusion/Plan: Baseline creatinine appears to be 3.1 on presentation today creatinine is elevated to 3.6. Patient does appear to be dry this could be secondary to dehydration. This could also be progression of her chronic renal failure. Plan: Give IV sodium bicarbonate drip slowly given history of CKD and atrial fibrillation with risk of volume overload Monitor creatinine Avoid nephrotoxic agents (3) Atrial fibrillation with RVR Conclusion/Plan: Patient presented with heart rate in the 110s Became more elevated in the emergency department therefore was given one dose of IV diltiazem Patient is getting albuterol for treatment of hyperkalemia which will put her at risk of increased heart rate We'll monitor closely on telemetry The heart rate continues to be elevated patient will need further doses of IV metoprolol and IV diltiazem and possibly a diltiazem drip or digoxin load depending on blood pressure toleration Patient not on anticoagulation Continue by mouth metoprolol (4) Anemia Conclusion/Plan: secondary to chronic kidney disease Appears to be at baseline Monitor Qualifiers: Anemia type: unspecified type Qualified Code(s): D64.9 - Anemia, unspecified (5) COPD (chronic obstructive pulmonary disease) Conclusion/Plan: does not appear to be in exacerbation Placed on Xopenex as needed (6) Hypothyroidism Conclusion/Plan: continue home dose of Synthroid Stable (7) Prophylactic use of low molecular weight heparin for venous thromboembolism Conclusion/Plan: placed on Lovenox during hospitalization - Lab Results Lab results reviewed: Yes Manohar Bones: 04/19/17 18:10 04/19/17 19:35 - Diagnostic Imaging Results Diagnostic Imaging Results: positive: Final report reviewed - EKG Results EKG Interpreted Independently: Yes Issues/Core Measures - Anticipated LOS Anticipated Stay Length: Less than 2 midnights - DVT/VTE - Prophylaxis VTE/DVT Prophylaxis med ordered at admit?: Yes
[2017-04-19] MEDS ORDERED: MIN OIL/DIMETHICON/COCONUT OIL 92 GM TUBE TOP ONE (22:15)
[2017-04-19] MEDS: METOPROLOL TARTRATE 25 MG TABLET PO SCH (22:47)
[2017-04-19] MEDS: diphenhydrAMINE 25 MG CAPSULE PO PRN (23:03)
[2017-04-19] MEDS: ACETAMINOPHEN 325 MG TABLET PO PRN (23:03)
[2017-04-19] MEDS: HEPARIN 5,000 UNIT/ML VIAL SUBQ SCH (23:04)
[2017-04-19] MEDS: FLUTICASONE NASAL SPRAY NAS SCH (23:10)
[2017-04-19] MEDS: NYSTATIN POWDER 15 GM TOP SCH (23:11)
[2017-04-19] MEDS: HYDROCORTISONE 1% CREAM 28 GM TUBE TOP SCH (23:13)
[2017-04-19] MEDS: SODIUM CHLORIDE FLUSH 0.9% 10 ML SYRINGE IVP SCH (23:13)
[2017-04-20] MEDS: SODIUM CHLORIDE FLUSH 0.9% 10 ML SYRINGE IVP SCH ×3 (05:08→21:59)
[2017-04-20] MEDS ORDERED: SODIUM CHLORIDE 0.9% 500 ML IV ONE (05:58)
[2017-04-20] MEDS: LEVOTHYROXINE 75 MCG TABLET PO SCH (06:09)
[2017-04-20] MEDS: PANTOPRAZOLE 40 MG TABLET PO SCH (06:09)
[2017-04-20 06:16] LABS: BASOPHILS % (AUTO) 0.5 %; EOSINOPHILS # (AUTO) 0.2 10^3/uL (0.0-0.7); EOSINOPHILS % (AUTO) 5.8 %; HCT - HEMATOCRIT 23.8 % (37.0-47.0); HGB - HEMOGLOBIN 7.7 g/dL (12.0-16.0); LYMPHOCYTES # (AUTO) 0.7 10^3/uL (1.5-3.5); LYMPHOCYTES % (AUTO) 17.3 %; MEAN CORPUSCULAR HEMOGLOBIN 31.7 pg (27.0-31.0); MEAN CORPUSCULAR HGB CONC 32.3 g/dL (32.0-36.0); MEAN CORPUSCULAR VOLUME 98.1 fL (81.0-99.0); MEAN PLATELET VOLUME 8.4 fL (7.9-10.8); MONOCYTES # (AUTO) 0.3 10^3/uL (0.0-1.0); MONOCYTES % (AUTO) 7.9 %; NEUTROPHILS # (AUTO) 2.9 10^3/uL (1.5-6.6); NEUTROPHILS % (AUTO) 68.5 %; NUCLEATED RED BLOOD CELLS AUTO 0.2 /100WBC; RED BLOOD COUNT 2.43 10^6/uL (4.20-5.40); RED CELL DISTRIBUTION WIDTH 20.6 % (12.0-15.0); UNCORRECTED WHITE BLOOD COUNT 4.3 x10^3/uL; WHITE BLOOD COUNT 4.3 x10^3/uL (4.8-10.8)
[2017-04-20 06:29] LABS: ALBUMIN/GLOBULIN RATIO 0.6 (1.0-2.2); BILIRUBIN,TOTAL 0.4 mg/dL (0.2-1.0); CALCIUM 8.4 mg/dL (8.5-10.3); CREATININE 3.3 mg/dL (0.4-1.0); MAGNESIUM 2.1 mg/dL (1.7-2.8); PHOSPHORUS 5.9 mg/dL (2.5-4.6); POTASSIUM 5.7 mmol/L (3.5-5.0); TOTAL PROTEIN 5.7 g/dL (6.7-8.2)
[2017-04-20] MEDS: diphenhydrAMINE 25 MG CAPSULE PO PRN ×3 (06:51→20:45)
[2017-04-20] MEDS: POLYETHYLENE GLYCOL 3350 17 GM PACKET PO SCH (09:32)
[2017-04-20] MEDS: METOPROLOL TARTRATE 25 MG TABLET PO SCH ×2 (09:37→21:58)
[2017-04-20] MEDS: CALCIUM ACETATE 667 MG CAPSULE PO SCH ×3 (09:37→19:05)
[2017-04-20] MEDS: FLUTICASONE NASAL SPRAY NAS SCH ×2 (10:04→20:19)
[2017-04-20] MEDS: HYDROCORTISONE 1% CREAM 28 GM TUBE TOP SCH ×2 (10:07→20:47)
[2017-04-20] MEDS: NYSTATIN POWDER 15 GM TOP SCH ×2 (10:07→21:58)
[2017-04-20] MEDS: HEPARIN 5,000 UNIT/ML VIAL SUBQ SCH ×2 (10:13→20:18)
--- NOTE | 2017-04-20 11:02 | PROVIDER PROGRESS NOTE ---
Subjective - Prog Note Date Prog Note Date: 04/20/17 Prog Note Time: 10:57 - Subjective Subjective: use your nails, scratch my back spoke with brother Victor Manuel this afternoon (see below) Later in evening when rechecked patient; asked if she had eaten; response "not this Sh_t!", "get me a warm blanket, now" denies complaints Current Medications - Current Medications Current Medications: Active Medications Generic Name Dose Route Start Last Admin Trade Name Freq PRN Reason Stop Dose Admin Acetaminophen 650 mg 04/19/17 20:57 04/19/17 23:03 Tylenol PO 650 mg Q4HR PRN Administration Pain 1 to 4 Albuterol/Ipratropium 3 ml 04/19/17 20:55 04/20/17 07:20 Duoneb INH 3 ml QID PRN Administration Dyspnea Calcium Acetate 667 mg 04/20/17 08:00 04/20/17 09:37 Phoslo PO 667 mg TIDWM YAKOV Administration Diphenhydramine HCl 25 mg 04/19/17 22:37 04/20/17 06:51 Benadryl PO 25 mg Q4HR PRN Administration Allergy Symptoms Fluticasone Propionate 1 sprays 04/19/17 21:00 04/20/17 10:04 Flonase LOTTIE 1 spr BID YAKOV Administration Heparin Sodium (Porcine) 5,000 unit 04/19/17 21:00 04/20/17 10:13 SUBQ 5,000 unit BID YAKOV Administration Hydrocortisone 1 applic 04/19/17 23:00 04/20/17 10:07 Hydrocortisone TOP 1 applic BID YAKOV Administration Levalbuterol HCl 1.25 mg 04/19/17 20:57 Xopenex INH Q4H PRN Wheezing Levothyroxine Sodium 150 mcg 04/20/17 07:00 04/20/17 06:09 Synthroid PO 150 mcg QDAC YAKOV Administration Metoprolol Tartrate 25 mg 04/20/17 21:00 Lopressor PO BID YAKOV Nystatin 1 applic 04/19/17 21:00 04/20/17 10:07 Nystop TOP 1 applic BID YAKOV Administration Ondansetron HCl 4 mg 04/19/17 20:57 Zofran Inj IVP Q6HR PRN Nausea / Vomiting Oxycodone HCl 5 mg 04/19/17 20:57 Roxicodone PO Q4HR PRN Pain 5 to 7 Pantoprazole Sodium 40 mg 04/20/17 07:00 04/20/17 06:09 Protonix PO 40 mg QDAC YAKOV Administration Polyethylene Glycol 17 gm 04/20/17 09:00 04/20/17 09:32 Miralax PO Not Given DAILY YAKOV Prochlorperazine Edisylate 10 mg 04/19/17 20:57 Compazine Inj IVP Q6HR PRN Nausea / Vomiting Sodium Chloride 10 ml 04/19/17 20:57 Normal Saline Flush 0.9% IVP PRN PRN NEEDED PER PROVIDER ORDERS Sodium Chloride 10 ml 04/19/17 22:00 04/20/17 05:08 Normal Saline Flush 0.9% IVP Not Given Q8HR YAKOV Sodium Chloride 3 ml 04/19/17 20:57 Normal Saline INH Q4H PRN Levalbuterol treatment Fluticasone [Flonase] 1 spray LOTTIE BID 04/07/17 Ipratropium/Albuterol [Duoneb] 3 ml INH QID PRN 04/07/17 Omeprazole 20 mg PO QDAC 04/07/17 Levothyroxine Sodium [Synthroid] 150 mcg PO QDAC 04/20/17 Metoprolol Tartrate [Lopressor] 25 mg PO BID 04/20/17 Tramadol HCl [Tramadol HCl] 50 mg PO Q6H PRN 04/20/17 Objective - Vital Signs/Intake & Output Reviewed Vital Signs: Yes Vital Signs: Vital Signs x48h Temp Pulse Pulse Resp BP BP Pulse Ox 04/20/17 09:37 116/75 04/20/17 08:18 36.5 C 126 H 16 116/75 100 04/20/17 07:20 124 H 14 04/20/17 04:00 36.2 C L 124 H 20 100/57 L 98 Intake & Output: Intake & Output 04/17/17 04/18/17 04/19/17 04/20/17 23:59 23:59 23:59 23:59 Intake Total 1495 Balance 1495 - Objective General Appearance: positive: Other (lying in bed, NAD, general pallor not wearing her glasses or hearing aid) Respiratory: positive: No respiratory distress. negative: Breath sounds nml ( fine crackles bilateral bases, unlabored respirations unchanged when checked later in afternoon) Cardiovascular: positive: Irregularly irregular (rate ~ 120) Abdomen: positive: Nml bowel sounds, No distention, Other (adult pad on). negative: Tenderness Skin: positive: Warm, Dry, Other (exoriated / scabbed areas on arms , shoulders MUCH better than when left here to [facility] 04/12) Extremities: positive: Other (+ 2 edema feet to knees bilaterally) - Lab Results Fish Bones: 04/20/17 05:24 04/20/17 16:43 Other Labs: Lab Results x24hrs 04/20/17 04/20/17 Range/Units 05:24 05:24 WBC 4.3 L (4.8-10.8) x10^3/uL RBC 2.43 L (4.20-5.40) 10^6/uL Hgb 7.7 L (12.0-16.0) g/dL Hct 23.8 L (37.0-47.0) % MCV 98.1 (81.0-99.0) fL MCH 31.7 H (27.0-31.0) pg MCHC 32.3 (32.0-36.0) g/dL RDW 20.6 H (12.0-15.0) % Plt Count 176 (130-450) 10^3/uL MPV 8.4 (7.9-10.8) fL Neut # 2.9 (1.5-6.6) 10^3/uL Lymph # 0.7 L (1.5-3.5) 10^3/uL [place] # 0.3 (0.0-1.0) 10^3/uL Eos # 0.2 (0.0-0.7) 10^3/uL Baso # 0.0 (0.0-0.1) 10^3/uL Absolute Nucleated RBC 0.01 x10^3/uL Nucleated RBCs 0.2 /100WBC Sodium 145 (135-145) mmol/L Potassium 5.7 H (3.5-5.0) mmol/L Chloride 116 H (101-111) mmol/L Carbon Dioxide 19 L (21-32) mmol/L Anion Gap 10.0 (6-13) BUN 68 H (6-20) mg/dL Creatinine 3.3 H (0.4-1.0) mg/dL Estimated GFR (MDRD) 13 L (>89) Glucose 64 L (70-100) mg/dL Calcium 8.4 L (8.5-10.3) mg/dL Phosphorus 5.9 H (2.5-4.6) mg/dL Magnesium 2.1 (1.7-2.8) mg/dL Total Bilirubin 0.4 (0.2-1.0) mg/dL AST 50 H (10-42) IU/L ALT 66 H (10-60) IU/L Alkaline Phosphatase 113 (42-121) IU/L Total Protein 5.7 L (6.7-8.2) g/dL Albumin 2.2 L (3.2-5.5) g/dL Globulin 3.5 (2.1-4.2) g/dL Albumin/Globulin Ratio 0.6 L (1.0-2.2) Assessment/Plan - Problem List (1) Hyperkalemia Impression: known CKD, not on ACEI, not on exogenous K After dextrose/insulin, albuterol, kayexylate (and IV volume w/ bicarb) 5.7 at 5 :30, repeat ordered not yet done stopped IVF as she is edematous (and BP stable) ; was not edematous (maybe trace edema) on 04/12 discharge Recheck 5.6; will give single dose lasix 20 (I think IV lasix will pull off too much volume too fast) albuterol pushes her HR, the bicarb did not change her K much (and likley retaining fluid w/ the Na), The lasix will give a good idea as well if she can have very gentle diuresis now that more edematous will recheck labs in am discussed w/ family that even if we can address this problem acutely, it is likely that she has recurrent problems Victor Manuel (brother)spoke w/ son of patient today, and they agree hospice care at this point makes sense He himself sees her responding less to him yesterday and the day before (2) Acute on chronic renal failure Impression: This is the 3rd recent admission for Acute on chronic kidney injury (last week , she had taken NSAIDs as the precipitant; but no clear precipitant As above family recognizes progressive chronic illness>> plan palliative care will continue supportive measures (e.g. phos lo; will increase dose since phos still elevated at 5.9 despite starting phoslo 1 tab bid ~ 1 wk ago continue na bicarb, lasix po trial as above continue emolliunt for uremic pruritis (3) Atrial fibrillation Impression: rate uncontrolled /rvr this am due to albuterol (known in past to push her rate) improved over course of day with her metoprolol and as albuterol effect dissapated note ; at the time her rate was documented at 139 ~ 5p; on auscultation she was rate controlled ~ 100' but her hand was tremulous (with adequte blood pressure; HR spurious reading on pulse ox (4) Anemia Impression: Hgb/hct 8.8/27.5 on presentation>>> 7.7 / 23.8 after hydration (largely dilutional; do not suspect bleeding (bolused yesterday for low BP, will reeval in am (want to avoid iatrogenic anemia; expect her Ggb/hct should improve tomorrow w/ no further IVF dilution effect will not transfuse furhter , (also no erythropoeitin) given family wishes to pursue hospice Qualifiers: Anemia type: unspecified type Qualified Code(s): D64.9 - Anemia, unspecified (5) Hypotension Impression: BP low in ED yesterday requiring bolus (? how much of this was after the IV dilt 10) BP today allowed for her metoprolol 37.5 mg ; had discharged her to SNF with 25 mg metoprlol bid stopped IVF this am (due to CKD, and peripheral edema) BP remained stable today Qualifiers: Hypotension type: unspecified hypotension type Qualified Code(s): I95.9 - Hypotension, unspecified (6) COPD (chronic obstructive pulmonary disease) Impression: stable, no 02 requirement, no wheezing use xopenex for any wheezing (albuterol causes tachycardia in this pt)
[2017-04-20 17:08] LABS: CREATININE 3.5 mg/dL (0.4-1.0)
[2017-04-20 17:11] LABS: CALCIUM 8.2 mg/dL (8.5-10.3); POTASSIUM 5.6 mmol/L (3.5-5.0)
[2017-04-20] MEDS ORDERED: FUROSEMIDE 20 MG TABLET PO ONE (18:15)
[2017-04-20] MEDS: SODIUM CHLORIDE INHALATION 3 ML NEB INH PRN (19:18)
[2017-04-20] MEDS: LEVALBUTEROL 1.25 MG INH PRN (19:19)
[2017-04-21] MEDS: SODIUM CHLORIDE FLUSH 0.9% 10 ML SYRINGE IVP SCH ×2 (06:04→13:24)
[2017-04-21] MEDS: PANTOPRAZOLE 40 MG TABLET PO SCH (06:04)
[2017-04-21] MEDS: diphenhydrAMINE 25 MG CAPSULE PO PRN (06:04)
[2017-04-21] MEDS: LEVOTHYROXINE 75 MCG TABLET PO SCH (06:04)
[2017-04-21 06:11] LABS: BASOPHILS # (AUTO) 0.1 10^3/uL (0.0-0.1); BASOPHILS % (AUTO) 2.7 %; EOSINOPHILS # (AUTO) 0.2 10^3/uL (0.0-0.7); EOSINOPHILS % (AUTO) 6.5 %; LYMPHOCYTES # (AUTO) 0.8 10^3/uL (1.5-3.5); LYMPHOCYTES % (AUTO) 24.5 %; MEAN CORPUSCULAR HEMOGLOBIN 31.5 pg (27.0-31.0); MEAN CORPUSCULAR HGB CONC 32.6 g/dL (32.0-36.0); MEAN CORPUSCULAR VOLUME 96.6 fL (81.0-99.0); MONOCYTES # (AUTO) 0.3 10^3/uL (0.0-1.0); MONOCYTES % (AUTO) 8.2 %; NEUTROPHILS # (AUTO) 1.9 10^3/uL (1.5-6.6); NEUTROPHILS % (AUTO) 58.1 %; NUCLEATED RED BLOOD CELLS AUTO 0.2 /100WBC; RED BLOOD COUNT 2.17 10^6/uL (4.20-5.40); RED CELL DISTRIBUTION WIDTH 21.1 % (12.0-15.0); UNCORRECTED WHITE BLOOD COUNT 3.3 x10^3/uL; WHITE BLOOD COUNT 3.3 x10^3/uL (4.8-10.8)
[2017-04-21 06:17] LABS: HGB - HEMOGLOBIN 6.9 g/dL (12.0-16.0)
[2017-04-21 06:22] LABS: ALBUMIN/GLOBULIN RATIO 0.7 (1.0-2.2); BILIRUBIN,TOTAL 0.7 mg/dL (0.2-1.0); CALCIUM 8.1 mg/dL (8.5-10.3); CREATININE 3.7 mg/dL (0.4-1.0); POTASSIUM 5.2 mmol/L (3.5-5.0); TOTAL PROTEIN 5.3 g/dL (6.7-8.2)
[2017-04-21] MEDS ORDERED: SODIUM CHLORIDE 0.9% 1,000 ML IV SCH (08:00)
[2017-04-21] MEDS: METOPROLOL TARTRATE 25 MG TABLET PO SCH (08:46)
[2017-04-21] MEDS: POLYETHYLENE GLYCOL 3350 17 GM PACKET PO SCH (08:46)
[2017-04-21] MEDS: CALCIUM ACETATE 667 MG CAPSULE PO SCH ×2 (08:47→12:03)
[2017-04-21] MEDS: HYDROCORTISONE 1% CREAM 28 GM TUBE TOP SCH (08:47)
[2017-04-21] MEDS: NYSTATIN POWDER 15 GM TOP SCH (08:54)
[2017-04-21] MEDS: FLUTICASONE NASAL SPRAY NAS SCH (08:54)
[2017-04-21] MEDS: HEPARIN 5,000 UNIT/ML VIAL SUBQ SCH (08:55)
[2017-04-21] MEDS: LEVALBUTEROL 1.25 MG INH PRN (09:46)
[2017-04-21] MEDS: SODIUM CHLORIDE INHALATION 3 ML NEB INH PRN (09:46)
[2017-04-21] MEDS: ACETAMINOPHEN 325 MG TABLET PO PRN (12:10)
[2017-04-21 13:06] VITALS: BP 103/64
--- NOTE | 2017-04-22 11:50 | DISCHARGE SUMMARY ---
DATE OF ADMISSION: 04/20/2017 DATE OF DISCHARGE: 04/21/2017 DISCHARGE DESTINATION: [facility]. DISCHARGE DIAGNOSES 1. Hyperkalemia. 2. Chronic kidney disease, late stage IV-V, with a current GFR of 12-13. 3. Uremic pruritus. 4. Atrial fibrillation, not on anticoagulation. 5. Hypotension. 6. Anemia. CONSULTATIONS: None. PROCEDURES: None. DISCHARGE MEDICATIONS 1. Tylenol 650 mg every 6 hours p.r.n. pain. 2. Xopenex nebulizer every 6 hours p.r.n. wheeze. Note: Do not use albuterol as this causes rapid atrial fibrillation. 3. Cavilon barrier cream to perineum and perianal twice daily. 4. Aspirin 81 mg once daily. 5. Calamine ointment for pruritic skin areas. 6. Levothyroxine 150 mcg orally once daily. 7. Metoprolol 25 mg orally twice daily. 8. Calcium acetate 1334 mg 3 times daily with meals. 9. Prilosec 20 mg once daily. 10. Nystatin powder to groin folds twice daily. 11. Benadryl 25 mg every 12 hours for itching. Hold if confused. 12. Lipitor 10 mg once daily. 13. Vitamin D [address] Renteria will modify this medication list as her clinical condition warrants for comfort care. Note: Her sodium bicarb orally non-anion gap acidosis for CKD was stopped on 04/21. BRIEF HOSPITAL COURSE: Please see the detailed admission history and physical from Dr. López Hurt on 04/19 for details. Briefly, the patient is a 81-year- old female with late stage CKD who was admitted from [facility] on 04/19 for hyperkalemia after repeat lab checks to check her phosphorous and serum bicarb after initiation of oral calcium acetate and oral bicarb also revealed a potassium of 6.8. In the emergency room, she was initially treated with insulin followed by D50. She also received an albuterol nebulizer after her glucose had not improved, as well as a dose of Kayexalate and IVF. An EKG on that admission did not have significant T wave changes with the elevated potassium (but had somewhat low voltage. ) Regarding potential causes of the increase in her potassium, although she had been readmitted just ~ 1 week prior from home due to acute kidney injury superimposed on CKD due to NSAIDS, at the medical center clinic facility, she had received no exogenous K, was on no potassium sparing medications and had not previously had problems with hyperkalemia (even after packed red blood cells which add at least a small amount of potassium.) She was also again in atrial fibrillation with a rapid ventricular response and now has more evidence of fluid retention, and her BUN and creatinine did not improve following hydration. On a prior admission, the brother who is her durable power of staff attorney had a thoughtful discussion with Brook Feliciano, along with the patient (who has little to no insight into her medical condition) and plans had changed to palliative care with limited interventions. The patient's brother, Victor Manuel, again, had a thoughtful discussion with the family and has changed the goal of care to strictly comfort care and she had been accepted back at [facility] where she will have ongoing care by Dr. Vijay Renteria. As noted, he will modify the medication list noted above as clinical condition warrants. At this time, the patient still is able to get up with a 2-person assist to the chair, although she is somewhat more lethargic when in bed and continues to be somewhat cantankerous and demanding when up, although she appears more comfortable than on prior admission. She is discharged on a regular diet. This time we will not enforce a renal diet with her. Oxygen is not required at this time. Liquids, she tolerates thin liquids. There are no PT or OT needs at this time. Ideally, if possible for comfort, still have patient get up out of bed to chair for meals. She will have no further lab draws from this time forward and again will be followed by Dr. Vijay Renteria. PHYSICAL EXAMINATION ON THE DAY OF DISCHARGE VITAL SIGNS: At 1 p.m., she is afebrile with a heart rate of 111, blood pressure 103/64, respiratory rate 20, 96% oxygen on room air. Her lowest systolic today was 95/55. GENERAL: The patient was sleeping in bed this morning and arouses to the exam, requesting examiner to leave. Later, she was seen sitting up in the chair eating a meal and assisted to the wheelchair later in the day by 2 nursing assistants. HEENT: She has a cochlear implant in place and does hear my request when spoken in the left ear. She is wearing glasses. When her eyes are open, pupils are equal. Eyes track evenly. She has very mild conjunctival pallor. There is no drainage. Her oral mucosa is somewhat dry. CHEST: She has unlabored respirations on room air with adequate room air oxygentation of 96%. She has bilateral basilar crackles. There is no cough, there is no wheezing. HEART: Irregular irregular S1, S2 with no appreciable murmur with a rate of approximately 100. ABDOMEN: Modestly obese, soft, nondistended, nontender. She is wearing an adult pad. EXTREMITIES: Notable for approximately 1-2+ edema from feet to knees. SKIN: Her skin is quite dry. Of note, the previous scabbing from itching and scratching by the patient due to uremic pruritis is much improved. She does have some resolving scabs on some of the areas on her shoulders, but this is much improved. Of note, her perianal and peroneal areas were not examined by me today; however, she last had shallow ulcerations from chronic urinary dribbling which per RN report are improving with cavilon barrier. JOB #: [id number] EXT JOB #:[id number]
== END 2017-04-21 15:00 | DRG 641 ==
LOC: ED 17:45 → EDUNIT# 17:45 → MS 20:57 → OBSVTOIN 04-20 12:55 → MS 04-20 13:18
PROVIDERS: ADMIT Internal Medicine; ATTEND Nurse Practitioner
DX: E87.5 Hyperkalemia (principal); N18.5 Chronic kidney disease, stage 5; N18.4 Chronic kidney disease, stage 4 (severe); N17.9 Acute kidney failure, unspecified; L29.8 Other pruritus; I48.91 Unspecified atrial fibrillation; I95.9 Hypotension, unspecified; D63.1 Anemia in chronic kidney disease; H35.30 Unspecified macular degeneration; L29.9 Pruritus, unspecified; K62.89 Other specified diseases of anus and rectum; E03.9 Hypothyroidism, unspecified; J44.9 Chronic obstructive pulmonary disease, unspecified; H91.90 Unspecified hearing loss, unspecified ear; K21.9 Gastro-esophageal reflux disease without esophagitis; Z87.891 Personal history of nicotine dependence; Z96.21 Cochlear implant status; Z79.51 Long term (current) use of inhaled steroids; Z79.899 Other long term (current) drug therapy; Z66 Do not resuscitate
CPT/HCPCS: 36415; 80048; 80053; 83690; 83735; 84100; 84132; 85025; 93005; 94640; 96361; 96365; 96366; 96374; 96375; 99284; 99285